=== PATIENT | female | born 1980 | race Caucasian/White ===

== ENCOUNTER 2020-12-19 16:34 | Emergency (ER) | payer OTHER, SELFPAY ==
[2020-12-19 16:45] VITALS: BP 98/65; PULSE 75; RESP 17; TEMP 37.2; O2SAT 100
--- NOTE | 2020-12-19 17:38 | ED.FEMALEGU ---
HPI - Female Genitourinary General Chief complaint: Abdominal Pain Stated complaint: diarrhea/abdominal pain Time Seen by Provider: 12/19/20 17:35 Source: patient Mode of arrival: ambulatory Limitations: no limitations History of Present Illness HPI Narrative: Nuris Herr is a 40 yo female with no PMH who [facility] of diarrhea and abdominal discomfort x1 week Related Data Allergies Allergy/AdvReac Type Severity Reaction Status Date / Time Sulfa (Sulfonamide Allergy Unknown Itching Verified 12/19/20 17:04 Antibiotics) SHELL FISH Allergy Intermediate FACE SWELLS Uncoded 12/19/20 17:04 Review of Systems Review of Systems: CONSTITUTIONAL: Denies fever, chills, sweats. EYES: Denies visual changes, redness, discharge. ENT: Denies rhinorrhea, congestion, sore throat, otalgia. CARDIOVASCULAR: Denies chest pain, palpitations, edema. RESPIRATORY: Denies dyspnea, wheezing, cough GASTROINTESTINAL: Denies abdominal pain, cramping, has nausea, vomiting, has diarrhea. GENITOURINARY: Denies dysuria, hematuria, abnormal discharge SKIN: Denies rash or itching. NEUROLOGIC: Denies numbness, or focal weakness. PSYCHIATRIC: Denies anxiety or depression. [facility] Past Medical History Medical History No acute medical problems Social History Social History (Updated 12/19/20 @ 17:42 by Anya Oliver CNP) Smoking status: Never smoker Alcohol intake: current Gender identity (if verbalized by the patient): Female Comments At time of signature, I agree with nursing past medical, surgical, social and family history. There is no relevant family history pertinent to the presenting complaint. Exam Narrative: GENERAL: This is a well-nourished, well-developed patient, in mild distress. HEAD: normocephalic, atraumatic. EYES: PERRL. Sclera clear/white. Vision is grossly intact. EARS: External ears normal, auditory canals clear and without drainage, TMs normal without perforation. Hearing grossly intact. NOSE: External nose normal without nasal discharge, nares without redness, no rhinorrhea. THROAT: Mucous membranes moist, posterior pharynx NECK: Neck supple, non-tender CARDIOVASCULAR: Regular rate and rhythm without murmurs, gallops, or rubs. RESPIRATORY: Clear to auscultation. Breath sounds equal bilaterally. No wheezes, rales, or rhonchi. GASTROINTESTINAL: Abdomen soft, non-tender, SKIN: warm, intact with no suspicious lesions or rash, good texture and turgor. NEURO: awake, alert, and oriented to person, place and time. There were no obvious focal neurologic abnormalities. Steady gait EXTREMITIES: Normal range of motion. BACK: Nontender without deformity Course Course Emergency Course: Patient comes with diarrhea for a week she states that she has the same situation last month and raises docks and thinks it may be she contracted something for the ducts but this time is have been unable to control the diarrhea Discussed brat diet and use of Zofran and Imodium to deal with diarrhea but cautioned that if the meds do not work, she starts running a fever, abdominal pain worsens, or diarrhea continues and she starts to get dehydrated patient should go to the ER for further evaluation Vital Signs Vital signs: Vital Signs Temperature 98.9 F 12/19/20 16:45 Pulse Rate 75 12/19/20 16:45 Respiratory Rate 17 12/19/20 16:45 Blood Pressure 98/65 L 12/19/20 16:45 Pulse Oximetry 100 12/19/20 16:45 Temperature 98.9 F 12/19/20 16:45 Pulse Rate 75 12/19/20 16:45 Respiratory Rate 17 12/19/20 16:45 Blood Pressure 98/65 L 12/19/20 16:45 Pulse Oximetry 100 12/19/20 16:45 MDM - Female Genitourinary Differential Diagnosis Differential diagnosis: Likely other (abdominal pain vs diarrhea) Lab Data Labs: Lab Results 12/19/20 Range/Units 16:53 POC SARS CoV-2 Ag Negative (Negative) Urine Glucose N
== END 2020-12-19 18:06 | disposition home or self-care (01) ==
PROVIDERS: Emergency Provider Nurse Practitioner
DX: K52.9 Noninfective gastroenteritis and colitis, unspecified (principal); Z20.822 Contact with and (suspected) exposure to COVID-19
CPT/HCPCS: 81003; 87426; 99213; C9803; G0463

== ENCOUNTER 2020-12-29 18:09 | Emergency (ER) | payer OTHER, SELFPAY ==
[2020-12-29 18:50] VITALS: BP 107/71; PULSE 62; RESP 16; TEMP 37.1; O2SAT 99
--- NOTE | 2020-12-29 19:29 | ED.FEMALEGU ---
HPI - Female Genitourinary General Chief complaint: Urogenital-Female Stated complaint: uti Time Seen by Provider: 12/29/20 19:29 Source: patient and RN notes reviewed Mode of arrival: ambulatory Limitations: no limitations History of Present Illness HPI Narrative: 40-year-old female who presents to [facility] with complaints of burning with urination, suprapubic pain,decrease urine amounts since yesterday. Patient states past history of urinary tract infections. Patient denies any known fevers, chills or sweats, denies any nausea vomiting or any diarrhea, denies any vaginal discharge or itching or concerns for STD's. Patient has not taken any OTC AZO for her symptoms. MD elicited complaint: dysuria and difficulty urinating Related Data Allergies Allergy/AdvReac Type Severity Reaction Status Date / Time Sulfa (Sulfonamide Allergy Unknown Itching Verified 12/19/20 17:04 Antibiotics) SHELL FISH Allergy Intermediate FACE SWELLS Uncoded 12/19/20 17:04 Review of Systems Review of Systems: CONSTITUTIONAL: Denies fever, chills, or sweats. EYES: Denies visual changes, redness, or discharge. ENT: Denies rhinorrhea, congestion, sore throat, or otalgia. CARDIOVASCULAR: Denies chest pain, palpitations, or edema. RESPIRATORY: Denies cough or dyspnea. GASTROINTESTINAL: Suprapubic tenderness abdominal pain,no nausea, vomiting, or diarrhea. GENITOURINARY:Positive for dysuria or hematuria. SKIN: Denies rash or itching. MUSCULOSKELETAL: Denies back pain, joint pain, or myalgia. NEUROLOGIC: Denies headache, numbness, or weakness. PSYCHIATRIC: Denies anxiety or depression. All systems reviewed & are unremarkable except as noted in HPI and below PMFSH Past Medical History Medical History (Updated 12/31/20 @ 09:54 by Millie Ferraro NP) Eczema Fracture of nose, closed Fracture of rib UTI (urinary tract infection) Surgical History Surgical History (Updated 12/31/20 @ 09:54 by Millie Ferraro NP) Previous section Family History Family History (Updated 12/31/20 @ 09:55 by Millie Ferraro NP) Sibling Diabetes mellitus Social History Social History (Updated 12/31/20 @ 09:56 by Millie Ferraro NP) Smoking status: Former smoker Additional smoking assessment comments: quit 10 years ago Alcohol intake: current Substance use: never Living arrangements: with family Gender identity (if verbalized by the patient): Female Comments At time of signature, agree with nursing past medical, surgical, social and family history. There is no relevant family history pertinent to the presenting complaint Exam Narrative: GENERAL: Well-appearing, well-nourished, and in no acute distress. HEAD: Normocephalic, atraumatic. EYES: PERRLA and EOMI. ENT: Nares clear, no rhinorrhea or epistaxis. Mucous membranes moist. NECK: Supple.no lymphadenopathy CHEST: Clear to auscultation. No respiratory distress.SAO2 99% on room air HEART: Regular rate and rhythm. No murmur heard. Normal peripheral pulses. ABDOMEN: Soft, tender over suprapubic area of abdomen, nondistended, normal active bowel sounds.No CVA tenderness on exam EXTREMITIES: Normal range of motion. No edema. SKIN: Warm, dry, no rash. NEURO: No focal deficits. Alert and oriented x3. Course Vital Signs Vital signs: Vital Signs Temperature 37.1 C 12/29/20 18:50 Pulse Rate 62 12/29/20 18:50 Respiratory Rate 16 12/29/20 18:50 Blood Pressure 107/71 12/29/20 18:50 Pulse Oximetry 99 12/29/20 18:50 Temperature 37.1 C 12/29/20 18:50 Pulse Rate 62 12/29/20 18:50 Respiratory Rate 16 12/29/20 18:50 Blood Pressure 107/71 12/29/20 18:50 Pulse Oximetry 99 12/29/20 18:50 MDM - Female Genitourinary Differential Diagnosis Differential diagnosis: Likely urinary tract infection, vaginitis and cystitis Medical Records Attestation: I reviewed the patient's medical records. Lab Data Attestation: I reviewed the patient's lab results. Lab
== END 2020-12-29 19:36 | disposition home or self-care (01) ==
PROVIDERS: Emergency Provider Registered Nurse
DX: N39.0 Urinary tract infection, site not specified (principal); Z87.891 Personal history of nicotine dependence
CPT/HCPCS: 81003; 87077; 87086; 87088; 87186; 99213; G0463

== ENCOUNTER 2021-01-28 02:59 | Emergency (ER) | payer OTHER, SELFPAY ==
[2021-01-28] VITALS (7 sets, daily range): BP systolic 94–109; BP diastolic 49–75; PULSE 75–91; RESP 15–16; TEMP 36.8; O2SAT 99–100
--- NOTE | ~2021-01-28 | CT_ITS ---
EXAMINATION: CT brain wo con DATE: 01/28/2021 03:44 INDICATION: Syncope. TECHNIQUE: Computed tomography (CT) of the head was performed without intravenous contrast. The mA wa s adjusted according to patient size. Iterative reconstruction technique was employed. The dose-lengt h product was 605.33 mGy-cm. COMPARISON: None FINDINGS: There is no intracranial hemorrhage, acute infarction, or abnormal intracranial mass lesion . The ventricles are normal in size. There is mild mucosal thickening in the ethmoid sinuses. The mas toid air cells are normal. The orbits are normal. IMPRESSION: 1. Normal brain. Reviewed, dictated and finalized at location A. IMPRESSION: 1. Normal brain.
--- NOTE | 2021-01-28 03:01 | ECG_ITS ---
Measurements Intervals [place] Rate: 74 P: 79 NM: 179 QRS: 54 QRSD: 78 T: 43 QT: 391 QTc: 436 Interpretive Statements SINUS RHYTHM WITH SINUS ARRHYTHMIA ST ELEVATION IN ANTEROLATERAL LEADS- PROBABLY EARLY REPOLARIZATION ABNORMALITY BASELINE ARTIFACT- I, II, III, AVR, AVL, AVF, V1, V5-V6 BORDERLINE ECG Electronically Signed On 01-28-2021 6:27:43 CDT by Dinesh Nichols D.O.
[2021-01-28 03:16] LABS: Basophils Absolute Auto 0.1 K/mm3 (0.0-0.1); Basophils Percent Auto 0.8 % (0.2-1.2); Eosinophils Absolute Auto 0.2 K/mm3 (0-0.3); Hematocrit 30.6 % (37.0-47.0); Hemoglobin 10.4 g/dL (12.0-15.0); Immature Granulocyte Absolute 0.02 K/mm3 (0.00-0.031); Immature Granulocyte Percent A 0.3 % (0-0.5); Lymphocytes Percent Auto 26.6 % (18.3-44.2); Mean Corpuscular Hemoglobin 29.5 pg (26-34); Mean Corpuscular Volume 86.9 fl (80-100); Monocytes Absolute Auto 0.5 K/mm3 (0.1-0.6); Neutrophils Absolute Auto 3.6 K/mm3 (1.3-6.7); Neutrophils Percent Auto 60.3 % (45.5-73.1); Platelet Count Result 186 k/mm3 (150-375); Red Blood Count 3.52 M/mm3 (4.2-5.4); Red Cell Distribution Width 13.3 % (11.5-14.5)
[2021-01-28 03:28] LABS: Anion Gap 11 mmol/L (8-16); Blood Urea Nitrogen 8 mg/dL (7-17); Calcium 9.1 mg/dL (8.4-10.2); Carbon Dioxide 23 mmol/L (22-30); Chloride 104 mmol/L (98-107); Estimated CRCL calculation 100 ml/min; Estimated Glomerular Filt Rate > 60; Glucose 90 mg/dL (65-110); Potassium 3.4 mmol/L (3.4-5.0); Sodium 138 mmol/L (137-145)
--- NOTE | 2021-01-28 03:30 | ED.SYNCOPE ---
HPI - Syncope General Chief Complaint: Syncope Stated Complaint: syncope Time Seen by Provider: 01/28/21 03:29 Source: patient Mode of arrival: ambulatory Limitations: no limitations History of Present Illness HPI narrative: Patient is a 40-year-old female complaining of a syncopal episode at home while playing videogames. Patient states that she felt dizzy and lightheaded prior to the syncopal episode. Patient denies any head injury. Patient denies any neck pain, chest pain, shortness of breath, abdominal pain, back pain, nausea, vomiting, fever or chills. Related Data Allergies Allergy/AdvReac Type Severity Reaction Status Date / Time Sulfa (Sulfonamide Allergy Unknown Itching Verified 01/28/21 03:09 Antibiotics) SHELL FISH Allergy Intermediate FACE SWELLS Uncoded 01/28/21 03:09 Review of Systems Review of Systems: All systems reviewed & are unremarkable except as noted in HPI and below Constitutional: Constitutional: Denies body ache(s), Denies chills, Denies excessive sweating, Denies fatigue, Denies fever(s), Denies headache(s), Denies lethargy, Denies malaise, Denies weakness and Denies weight loss Eyes: Eyes: Denies blurry vision, Denies change in vision and Denies loss of vision ENT: Denies dizziness, Denies ear discharge, Denies headache(s), Denies lip swelling, Denies epistaxis, Denies nasal congestion, Denies neck pain, Denies throat swelling and Denies tongue swelling Cardiovascular: Cardiovascular: Denies chest pain, Denies chest pain at rest, Denies chest pain with activity, Denies diaphoresis, Denies rapid heart rate, Denies edema, Denies irregular heart rhythm, Denies lightheadedness, Denies palpitations, Denies dyspnea and Denies dyspnea on exertion Respiratory: Respiratory: Denies chest congestion, Denies cough, Denies hemoptysis, Denies dyspnea and Denies dyspnea on exertion Gastrointestinal: Gastrointestinal: Denies abdominal pain, Denies melena, Denies hematochezia, Denies diarrhea, Denies nausea, Denies vomiting and Denies hematemesis Musculoskeletal: Musculoskeletal: Denies abnormal gait, Denies deformity, Denies joint swelling, Denies limited range of motion, Denies neck pain and Denies numbness Neurologic: Denies Abnormal speech present, Denies abnormal gait, Denies confusion, Denies headache(s), Denies focal weakness, Denies loss of vision, Denies numbness, Denies Other visual disturbances, Denies Sensory deficit (Neuro) and Denies weakness Psychiatric: Psychiatric: Denies confusion, Denies depression, Denies auditory hallucinations, Denies homicidal ideation and Denies suicidal ideation Endocrine: Endocrine: Denies cold intolerance, Denies excessive sweating, Denies fatigue, Denies heat intolerance and Denies palpitations Hematologic/Lymphatic: Hematologic/Lymphatic: Denies easy bleeding and Denies easy bruising Allergic/Immunologic: Allergic/Immunologic: Denies lip swelling, Denies throat swelling and Denies tongue swelling PMFSH Past Medical History Medical History Eczema Fracture of nose, closed Fracture of rib UTI (urinary tract infection) Surgical History Surgical History Previous section Family History Family History Sibling Diabetes mellitus Social History Social History Smoking status: Former smoker Additional smoking assessment comments: quit 10 years ago Alcohol intake: current Substance use: never Gender identity (if verbalized by the patient): Female Exam Const: General: cooperative, healthy appearing, comfortable, no acute distress, well developed, alert and awake; No confusion Orientation/consciousness: oriented to person, oriented to place, oriented to time, patient oriented x3 and No confusion Limitations: no limitations [facility]
[2021-01-28] MEDS: SODIUM CHLORIDE 0.9% IV 1,000 ML 999 ML IV CONT (03:42)
[2021-01-28 04:00] LABS: Partial Thromboplastin Time 24.6 SECONDS (22.3-36.8); Prothrombin Time 13.2 Seconds (11.1-14.7)
[2021-01-28 04:03] LABS: D Dimer 0.31 ug/mL (<0.48)
[2021-01-28 04:04] LABS: Troponin I < 0.012 ng/mL (0.000-0.034)
== END 2021-01-28 05:36 | disposition home or self-care (01) ==
PROVIDERS: Emergency Provider Emergency Medicine
DX: R55 Syncope and collapse (principal); Z87.440 Personal history of urinary (tract) infections; Z87.891 Personal history of nicotine dependence; R94.31 Abnormal electrocardiogram [ECG] [EKG]
CPT/HCPCS: 36415; 70450; 80048; 81025; 84484; 85025; 85380; 85610; 85730; 93005; 96360; 99284; J7030

== ENCOUNTER 2021-12-11 19:10 | Emergency (ER) | payer OTHER, SELFPAY ==
--- NOTE | ~2021-12-11 | XR_ITS ---
EXAM: XR foot RT min 3V DATE: 12/11/2021 19:27 HISTORY: pain to rt foot, area 2nd thur 5 metatarsals, . COMPARISON: None available. FINDINGS: Normal mineralization. No fracture or dislocation. No lytic or blastic lesion. Joint space s are maintained. No erosion or periosteal change. Soft tissues within normal limits. IMPRESSION: No acute osseous finding in the right foot. Reviewed, dictated and finalized at location K.
[2021-12-11 19:18] VITALS: BP 111/70; PULSE 67; RESP 16; TEMP 36.8; O2SAT 100
[2021-12-11 19:19] VITALS: BP 111/70; PULSE 67; RESP 16; TEMP 36.8; O2SAT 100
--- NOTE | 2021-12-11 19:49 | ED.GENADULT ---
HPI - General Adult General Chief complaint: Extremity Injury, Lower Stated complaint: Right foot Pain Time Seen by Provider: 12/11/21 19:42 Source: patient Mode of arrival: ambulatory Limitations: no limitations History of Present Illness HPI narrative: Patient presents today complaining of a 2-day history of right foot pain that has been worsening since onset. Denies numbness or tingling. She rates her pain 2/10 at rest, which increases to 8/10 with any weightbearing. She has been taking ibuprofen with some relief. Patient is a runner, but is unsure if this is contributing to her pain. Related Data Allergies Allergy/AdvReac Type Severity Reaction Status Date / Time Sulfa (Sulfonamide Allergy Unknown Itching Verified 12/11/21 19:19 Antibiotics) SHELL FISH Allergy Intermediate FACE SWELLS Uncoded 12/11/21 19:19 Review of Systems Review of Systems: CONSTITUTIONAL: Denies body aches, fever, chills, or sweats. EYES: Denies visual changes, redness, or discharge. ENT: Denies rhinorrhea, congestion, sore throat, or otalgia. CARDIOVASCULAR: Denies chest pain, palpitations, or edema. RESPIRATORY: Denies cough or dyspnea. GASTROINTESTINAL: Denies abdominal pain, nausea, vomiting, or diarrhea. GENITOURINARY: Denies dysuria or hematuria. SKIN: Denies rash, itching, or wounds. MUSCULOSKELETAL: Denies back pain, or myalgia.+Right foot pain NEUROLOGIC: Denies headache, numbness, tingling, or weakness. PSYCH: Denies depression or anxiety. [facility] Past Medical History Medical History Eczema Fracture of nose, closed Fracture of rib UTI (urinary tract infection) Surgical History Surgical History Previous section Family History Family History Sibling Diabetes mellitus Social History Social History Smoking status: Former smoker Additional smoking assessment comments: quit 10 years ago Alcohol intake: current Substance use: never Gender identity (if verbalized by the patient): Female Comments At time of signature, I have reviewed and agree with nursing past medical, surgical, social and family history unless otherwise noted. Please see nursing chart for further information. There is no relevant family history pertinent to the presenting complaint Exam Narrative: GENERAL: Well-appearing, well-nourished, and in no acute distress. HEAD: Normocephalic, atraumatic. EYES: EOMI. No redness or drainage. Conjunctivae normal. ENT: Mucous membranes pink and moist. NECK: Normal AROM. CHEST: No respiratory distress. EXTREMITIES: Right foot:Tenderness to proximal third and fourth metatarsals, Dorsal aspect. No edema, erythema, ecchymosis. Distal sensation intact in all 5 toes. Capillary refill normal. Pedal pulse normal. Full range of motion of ankle and all toes. SKIN: Warm, dry, no rash. Capillary refill normal. Normal skin turgor. NEURO: No focal deficits. Alert and oriented x3. Gait steady. PSYCH: Normal affect. No signs of depression or anxiety. Course Course Level of Care: Express Care Visit Vital Signs Vital signs: Vital Signs Temperature 98.3 F 12/11/21 19:18 Pulse Rate 67 12/11/21 19:18 Respiratory Rate 16 12/11/21 19:18 Blood Pressure 111/70 12/11/21 19:18 Pulse Oximetry 100 12/11/21 19:18 Oxygen Delivery Room Air 12/11/21 19:18 Temperature 98.3 F 12/11/21 19:19 Pulse Rate 67 12/11/21 19:19 Respiratory Rate 16 12/11/21 19:19 Blood Pressure 111/70 12/11/21 19:19 Pulse Oximetry 100 12/11/21 19:19 Oxygen Delivery Room Air 12/11/21 19:19 Reviewed Medical Decision Making Differential Diagnosis Differential Diagnosis: Fracture, sprain, Davis's neuroma, tarsal tunnel syndrome Vital Signs Vital Si
== END 2021-12-11 19:54 | disposition home or self-care (01) ==
PROVIDERS: Emergency Provider Nurse Practitioner
DX: M79.671 Pain in right foot (principal); Z87.891 Personal history of nicotine dependence
CPT/HCPCS: 73630; 99213; G0463

== ENCOUNTER 2021-12-24 17:56 | Emergency (ER) | payer OTHER, SELFPAY ==
--- NOTE | ~2021-12-24 | CT_ITS ---
EXAMINATION: CT brain wo con DATE: 12/24/2021 19:23 INDICATION: Head injury. TECHNIQUE: Computed tomography (CT) of the head was performed without intravenous contrast. The mA wa s adjusted according to patient size. Iterative reconstruction technique was employed. The dose-lengt h product was 605.33 mGy-cm. COMPARISON: Head CT 01/28/2021 FINDINGS: There is no intracranial hemorrhage, acute infarction, or abnormal intracranial mass lesion . The ventricles are normal in size. There is mild mucosal thickening in the paranasal sinuses. The m astoid air cells are normal. The orbits are normal. IMPRESSION: 1. Normal brain. Reviewed, dictated and finalized at location A. IMPRESSION: 1. Normal brain.
--- NOTE | ~2021-12-24 | XR_ITS ---
EXAMINATION: XR foot RT min 3V DATE: 12/24/2021 19:04 INDICATION: Right foot pain. TECHNIQUE: 4 views of right foot were obtained. COMPARISON: Right foot radiograph 12/11/2021 FINDINGS: Bone alignment is normal. No fracture. Joint spaces are well maintained. IMPRESSION: 1. Normal right foot. Reviewed, dictated and finalized at location A. IMPRESSION: 1. Normal right foot.
[2021-12-24 18:03] VITALS: BP 120/80; PULSE 73; RESP 16; TEMP 37; O2SAT 100
--- NOTE | 2021-12-24 19:15 | ED.GENADULT ---
HPI - General Adult General Chief complaint: Extremity Injury, Lower Stated complaint: right foot and head injury Time Seen by Provider: 12/24/21 19:03 Source: RN notes reviewed History of Present Illness HPI narrative: Patient presents emergency room from home for foot and head pain patient states that she has been having pain in her right foot for the past 2 weeks pain is located over the dorsal aspect of the foot at the base of the second and third digits she denies any known trauma or injury states that she does run frequently pain is worse with running and walking. She denies any direct trauma or injury states has not anything for the pain today patient also notes that headache that she has in the right posterior head she states she fell yesterday and hit her head when she fell on a dresser states she did not have loss conscious but continues to have a headache she denies any vision changes numbness or tingling in extremities neck pain or any other injuries from the fall Related Data Allergies Allergy/AdvReac Type Severity Reaction Status Date / Time Sulfa (Sulfonamide Allergy Unknown Itching Verified 12/11/21 19:19 Antibiotics) SHELL FISH Allergy Intermediate FACE SWELLS Uncoded 12/11/21 19:19 Review of Systems Review of Systems: Gen.: Denies fevers or chills Eyes: Denies eye pain or visual change ENT: Denies congestion Respiratory: Denies shortness of breath or cough CV: Denies chest pain or palpitations GI: Denies abdominal pain nausea, emesis or diarrhea Musculoskeletal: See HPI Neuro: Reports headache Skin: Denies rash Except as documented, all other systems reviewed and negative PMFSH Past Medical History Medical History Eczema Fracture of nose, closed Fracture of rib UTI (urinary tract infection) Surgical History Surgical History Previous section Family History Family History Sibling Diabetes mellitus Social History Social History Smoking status: Former smoker Additional smoking assessment comments: quit 10 years ago Alcohol intake: current Substance use: never Gender identity (if verbalized by the patient): Female Exam Narrative: APPEARANCE: No acute distress, nontoxic, resting in bed EYES: EOMI, PERRL HEENT: Normocephalic, atraumatic, TMs clear bilaterally nares patent no facial tenderness Neck supple no midline tenderness palpation for range of motion without pain RESPIRATORY: No respiratory distress Clear to auscultation bilaterally with no rhonchi wheezing or rales. CARDIOVASCULAR: Regular rate and rhythm without murmurs rubs or gallops. ABDOMINAL: Soft, nontender, MUSCULOSKELETAl: Moves all extremities. No clubbing, cyanosis or edema. Tender palpation of the right dorsal foot at the base of the second and third digits there is no swelling or ecchymosis there is no tenderness over the plantar aspect remainder the foot and ankle are nontender dorsalis pedis pulse 2+ neurovascular intact NEURO: Awake and alert. Following commands, speech normal, no focal deficits SKIN:: Warm, dry. No rashes lesions or abrasions PSYCHIATRIC: Normal affect/mood, Course Course Emergency Course: Discussed with patient results of workup and diagnosis. Discussed need for follow-up with primary care, proper use of medication, and reasons to return to the emergency department. Patient understands and agrees to current treatment plan discussed with patient need to refrain from running for the next week is concerned possible stress fracture versus other for follow-up with her PCP will place postop shoe Vital Signs Vital signs: Vital Signs Temperature 98.6 F 12/24/21 18:03 Pulse Rate 73 12/24/21 18:03 Respiratory Rate 16 12/24/21 18:03 Blood Pressure 120/80 0
[2021-12-24] MEDS: IBUPROFEN 600 MG TABLET PO (19:58)
== END 2021-12-24 20:31 | disposition home or self-care (01) ==
PROVIDERS: Emergency Provider Emergency Medicine
DX: S00.93XA Contusion of unspecified part of head, initial encounter (principal); M79.671 Pain in right foot; W01.190A Fall on same level from slipping, tripping and stumbling with subsequent striking against furniture, initial encounter
CPT/HCPCS: 70450; 73630; 99284; A9270

== ENCOUNTER 2022-02-08 17:12 | Outpatient (CLI) | payer OTHER, SELFPAY ==
[2022-02-08 17:36] LABS: Hematocrit 34.7 % (37.0-47.0); Hemoglobin 11.8 g/dL (12.0-15.0); Mean Corpuscular Hemoglobin 29.7 pg (26-34); Mean Corpuscular Volume 87.4 fl (80-100); Mean Platelet Volume 9.5 fl (7.4-10.4); Platelet Count Result 222 k/mm3 (150-375); Red Blood Count 3.97 M/mm3 (4.2-5.4); Red Cell Distribution Width 13.2 % (11.5-14.5); White Blood Count 5.6 K/mm3 (4.5-10.0)
[2022-02-08 17:49] LABS: Alanine Aminotransferase 27 U/L (6-35); Albumin Level 4.7 g/dL (3.5-5.1); Alkaline Phosphatase 40 U/L (38-126); Anion Gap 11 mmol/L (8-16); Aspartate Amino Transferase 35 U/L (14-36); Bilirubin,Total 0.9 mg/dL (0.2-1.3); Blood Urea Nitrogen 10 mg/dL (7-17); Calcium 8.9 mg/dL (8.4-10.2); Carbon Dioxide 22 mmol/L (22-30); Chloride 106 mmol/L (98-107); Cholesterol 160 mg/dL (0-200); Estimated Glomerular Filt Rate > 60; Glucose 94 mg/dL (65-110); HDL Direct 73 mg/dL; Potassium 3.8 mmol/L (3.4-5.0); Sodium 139 mmol/L (137-145); Triglycerides 51 mg/dL (<150)
[2022-02-08 18:00] LABS: LDL Cholesterol Direct 69 mg/dL
[2022-02-08 18:25] LABS: Hemoglobin A1C 4.4 % (<5.7)
[2022-02-08 18:44] LABS: Free T4 Free Thyroxine 0.96 ng/mL (0.78-2.19)
[2022-02-11 07:08] LABS: FSH 7.2 mIU/mL (***); LH 3.4 mIU/mL (***)
[2022-02-14 04:23] LABS: Estradiol, Ultrasensitive 55 pg/mL
== END 2022-02-08 17:13 | disposition home or self-care (01) ==
LOC: ANHLAB 17:15
PROVIDERS: Visit Provider Nurse Practitioner
DX: N92.6 Irregular menstruation, unspecified (principal)
CPT/HCPCS: 36415; 80053; 80061; 82306; 82607; 82670; 83001; 83002; 83036; 84439; 84443; 85027

== ENCOUNTER 2022-05-11 16:11 | Emergency (ER) | payer OTHER, SELFPAY ==
--- NOTE | 2022-05-11 16:22 | ED.FEMALEGU ---
HPI - Female Genitourinary General Chief complaint: Urogenital-Female Stated complaint: UTI Time Seen by Provider: 05/11/22 16:22 Source: patient Mode of arrival: ambulatory Limitations: no limitations History of Present Illness HPI Narrative: Nuris is a 41-year-old female patient presenting to the clinic today with complaints of possible urinary tract infection. She reports she is having some burning, frequency, and urgency x1 week. She has taken a 5 day course of Macrobid and this improved her symptoms while taking it however her symptoms have returned 2 days ago. She denies any fever or chills. She denies any back pain or lower abdominal pain Related Data Allergies Allergy/AdvReac Type Severity Reaction Status Date / Time Sulfa (Sulfonamide Allergy Unknown Itching Verified 05/11/22 16:18 Antibiotics) SHELL FISH Allergy Intermediate FACE SWELLS Uncoded 05/11/22 16:18 Review of Systems Review of Systems: Pertinent positives per HPI. Patient denies any fever, chills, rash, headache, visual changes, dizziness, cough, runny nose, sore throat, shortness of breath, chest pain, palpitations, nausea, vomiting, diarrhea, constipation, or any abdominal pain. PMFSH Past Medical History Medical History Eczema Fracture of nose, closed Fracture of rib UTI (urinary tract infection) Surgical History Surgical History Previous section Family History Family History Sibling Diabetes mellitus Social History Social History Smoking status: Former smoker Additional smoking assessment comments: quit 10 years ago Alcohol intake: current Substance use: never Gender identity (if verbalized by the patient): Female Comments At the time of my signature, I reviewed and agree with the nursing past medical, surgical, social, and family history. There is no relevant family history pertinent to the patient complaint. Exam Narrative: General: Well-developed, well nourished, in no apparent distress. Head: Normocephalic, atraumatic. Cardio: Regular rate and rhythm, s1 and s2 normal, no murmur appreciated. Resp: Clear to auscultation bilaterally, no rhonchi, rales, wheezing or rubs. Abdomen: Soft, pliable, bowel sounds present in all quadrants, non-tender to palpation, no organomegly, no CVAT tenderness. Course Course Emergency Course: Portions of this record may have been created with voice recognition software. Level of Care: Express Care Visit Vital Signs Vital signs: Vital Signs Temperature 37.2 C 05/11/22 16:26 Pulse Rate 64 05/11/22 16:26 Respiratory Rate 18 05/11/22 16:26 Blood Pressure 111/76 05/11/22 16:26 Pulse Oximetry 100 05/11/22 16:26 Oxygen Delivery Room Air 05/11/22 16:26 Temperature 37.2 C 05/11/22 16:26 Pulse Rate 64 05/11/22 16:26 Respiratory Rate 18 05/11/22 16:26 Blood Pressure 111/76 05/11/22 16:26 Pulse Oximetry 100 05/11/22 16:26 Oxygen Delivery Room Air 05/11/22 16:26 Vital signs reviewed MDM - Female Genitourinary MDM Narrative Medical decision making narrative: At the time the patient is resting comfortably on the exam table. Urinalysis is negative for any sign of bacteria, blood, or protein. I will place the patient on a prescription for some Pyridium to help with her symptoms. Supportive measures were discussed with the patient she voiced understanding of discharge instructions and agrees to treatment plan. Differential Diagnosis Differential diagnosis: Likely urinary tract infection, cystitis and other ( Dysuria) Lab Data Labs: Urine Glucose Negative Reference Range: Negative Urine Bilirubin Neg
[2022-05-11 16:26] VITALS: BP 111/76; PULSE 64; RESP 18; TEMP 37.2; O2SAT 100
== END 2022-05-11 17:02 | disposition home or self-care (01) ==
PROVIDERS: Emergency Provider Nurse Practitioner Family
DX: R30.0 Dysuria (principal); Z87.891 Personal history of nicotine dependence
CPT/HCPCS: 81003; 99213; G0463

== ENCOUNTER 2023-06-04 15:51 | Emergency (ER) | payer OTHER, SELFPAY ==
[2023-06-04 16:01] VITALS: BP 116/74; PULSE 83; RESP 20; TEMP 37.4; O2SAT 100
--- NOTE | 2023-06-04 16:13 | PC.NURSE ---
PT CALLED X3 FOR ROOM, LWBS
== END 2023-06-04 20:59 | disposition left against medical advice (07) ==
DX: R20.0 Anesthesia of skin (principal)
CPT/HCPCS: 99199

== ENCOUNTER 2023-06-05 14:59 | Emergency (ER) | payer OTHER, SELFPAY ==
[2023-06-05 15:06] VITALS: BP 125/78; PULSE 87; RESP 18; TEMP 37.3; O2SAT 100
--- NOTE | 2023-06-05 15:26 | ED.EXTPRO ---
HPI - Extremity Problem General Chief complaint: Extremity Problem,Nontraumatic Stated complaint: Left leg tingling Time Seen by Provider: 06/05/23 15:09 Source: patient and RN notes reviewed Mode of arrival: ambulatory Limitations: no limitations History of Present Illness HPI Narrative: Patient presents today with a 3 day history of left leg tingling. Reports 3 days ago she woke up with a kink in her mid back and numbness to the left lower leg and foot. The following day, she noted tingling to the upper leg area. Denies pain. She continues to run every morning for exercise. Denies weakness, loss of bowel or bladder control, headache, dizziness, chest pain, shortness of breath, vision changes, palpitations. She has tried no medication for symptoms prior to arrival. Yesterday she went to the ER for evaluation, but had to leave after several hours, before she was seen, due to childcare issues. Related Data Home Medications Medication Instructions Recorded Confirmed No Home Medications 06/05/23 06/05/23 Allergies Allergy/AdvReac Type Severity Reaction Status Date / Time nitrofurantoin Allergy Intermediate Itching Verified 05/11/22 17:18 [From Macrobid] Sulfa (Sulfonamide Allergy Unknown Itching Verified 05/11/22 16:18 Antibiotics) SHELL FISH Allergy Intermediate FACE SWELLS Uncoded 05/11/22 16:18 Review of Systems Review of Systems: CONSTITUTIONAL: Denies body aches, fever, chills, or sweats. EYES: Denies visual changes, redness, or discharge. ENT: Denies rhinorrhea, congestion, sore throat, or otalgia. CARDIOVASCULAR: Denies chest pain, palpitations, or edema. RESPIRATORY: Denies cough or dyspnea. GASTROINTESTINAL: Denies abdominal pain, nausea, vomiting, or diarrhea. GENITOURINARY: Denies dysuria or hematuria. SKIN: Denies rash, itching, or wounds. MUSCULOSKELETAL: Denies back pain, joint pain, or myalgia. NEUROLOGIC: Denies headache, or weakness.+ numbness and tingling to left leg PSYCH: Denies depression or anxiety. [facility] Past Medical History Medical History Eczema Fracture of nose, closed Fracture of rib UTI (urinary tract infection) Surgical History Surgical History Previous section Family History Family History Sibling Diabetes mellitus Social History Social History Smoking status: Former smoker Additional smoking assessment comments: quit 10 years ago Alcohol intake: current Substance use: never Living arrangements: with family Gender identity (if verbalized by the patient): Female Comments At time of signature, I have reviewed and agree with nursing past medical, surgical, social and family history unless otherwise noted. Please see nursing chart for further information. There is no relevant family history pertinent to the presenting complaint Exam Narrative: GENERAL: Well-appearing, well-nourished, and in no acute distress. HEAD: Normocephalic, atraumatic. EYES: EOMI. No redness or drainage. Conjunctivae normal. ENT: Mucous membranes pink and moist. NECK: Normal AROM. CHEST: No respiratory distress. MUSCULOSKELETAL: No bony tenderness of the spine or lumbar paraspinal muscles. EXTREMITIES: Left leg: distal sensation intact in all 5 toes, but patient reports decreased sensation in the toes and foot. Sensation intact in the remainder of the leg. Saddle sensation intact. Capillary refill normal. Pedal pulse normal. Color of the foot and leg is normal. Strength normal. SKIN: Warm, dry, no rash. Capillary refill normal. Normal skin turgor. NEURO: No focal deficits. Alert and oriented x3. Gait steady. PSYCH: Normal affect. No signs of depression or anxiety. Course Course Level of Care: Expr
== END 2023-06-05 15:32 | disposition home or self-care (01) ==
PROVIDERS: Emergency Provider Nurse Practitioner
DX: R20.0 Anesthesia of skin (principal); R20.2 Paresthesia of skin; Z87.891 Personal history of nicotine dependence
CPT/HCPCS: 99211; G0463

== ENCOUNTER 2023-06-13 20:19 | Emergency (ER) | payer OTHER, SELFPAY ==
--- NOTE | ~2023-06-13 | CT_ITS ---
Noncontrast CT scan of the lumbar spine CLINICAL HISTORY: Lower extremity numbness TECHNIQUE: Axial noncontrast imaging of the lumbar spine was performed. Sagittal and coronal reformat belgica images were constructed. Dose reduction technique was used on this scan by utilizing automated ex posure control and iterative reconstruction technique. The dose-length product (DLP) was 416.86 mGy-c m. FINDINGS: There is no fracture or subluxation of the lumbar spine. Vertebral bodies maintain normal h eight and alignment. Intervertebral disc spaces are relatively well-preserved. At L1-L2, there is no disc bulge or herniation. No spinal canal stenosis or neural foraminal narrowin g. At L2-L3, there is no disc bulge or herniation. No spinal canal stenosis or neural foraminal narrowin g. L3-L4, there is no significant disc bulge or herniation. No spinal canal stenosis or neural foraminal narrowing. At L4-L5, there is minimal disc bulge. No spinal canal stenosis or definite neural foraminal narrowin g. At L5-S1, there is no disc bulge or herniation. No spinal canal stenosis or neural foraminal narrowin g. Paravertebral soft tissues are unremarkable. Impression: Minimal degenerative spondylosis. Reviewed, dictated and finalized at location . [facility] Impression: Minimal degenerative spondylosis.
--- NOTE | ~2023-06-13 | CT_ITS ---
Noncontrast CT scan of the thoracic spine CLINICAL HISTORY: Lower extremity numbness TECHNIQUE: Axial noncontrast imaging of the thoracic spine was performed. Sagittal and coronal reform atted images were constructed. Dose reduction technique was used on this scan by utilizing automated exposure control and iterative reconstruction technique. The dose-length product (DLP) was 244.96 mGy -cm. FINDINGS: There is no fracture or subluxation of the thoracic spine. Vertebral bodies maintain normal height and line. Intervertebral disc spaces are preserved. No significant disc bulge or herniation. No definite canal stenosis or cord compression identified. Paravertebral soft tissues are unremarkable. Impression: No significant abnormality seen. Reviewed, dictated and finalized at location . TESTER Impression: No significant abnormality seen.
--- NOTE | ~2023-06-13 | XR_ITS ---
Portable chest x-ray Comparison: 04/04/2016 Clinical History: Numbness Findings: Lungs are clear, without focal consolidation or pleural effusion. Cardiomediastinal silho uette is stable. Bones and soft tissues are unremarkable. Impression: Normal chest. Reviewed, dictated and finalized at location . [facility] SUPERIOR Impression: Normal chest.
--- NOTE | ~2023-06-13 | CT_ITS ---
CT ANGIOGRAM NECK AND HEAD History: Lower extremity numbness. Technique: Axial noncontrast imaging of the brain was performed. Serial spiral axial images through t he head and neck were then obtained during arterial phase IV injection of 100 cc of Omnipaque 350. 3- D postprocessing and MIP images were then reconstructed on the remote workstation. Dose reduction muriel hnique was used on this scan by utilizing automated exposure control and iterative reconstruction muriel hnique. The dose-length product (DLP) was 1779.12 mGy-cm. COMPARISON: 12/24/2021 CTA neck findings: Bilateral vertebral arteries are patent. Bilateral common carotid, internal carot id, and external carotid arteries are patent. No stenosis or aneurysm. No large vessel occlusion. The proximal right internal carotid artery demonstrates 0% stenosis relative to the normal distal artery lumen diameter. The proximal left internal carotid artery demonstrates 0% stenosis relative to the n ormal distal artery lumen diameter. CTA head findings: Distal vertebral arteries, basilar artery, and posterior cerebral arteries are pat ent. Distal internal carotid arteries, middle cerebral arteries, and anterior cerebral arteries are p atent. No large vessel occlusion. No stenosis or aneurysm. Axial noncontrast imaging of the brain is unremarkable. No acute intracranial hemorrhage, acute infar ct, or mass lesion seen. Salcedo-white differentiation preserved. Ventricles and subarachnoid spaces are unremarkable. No mass effect or midline shift. Nasal sinuses and mastoid air cells are clear. Impression: Unremarkable exam. Reviewed, dictated and finalized at [facility]. TH UNIT CLERK Impression: Unremarkable exam.
[2023-06-13 20:40] VITALS: BP 130/83; PULSE 74; RESP 17; TEMP 36.9; O2SAT 100
[2023-06-13 23:22] VITALS: BP 111/98; PULSE 83; RESP 12; O2SAT 100
--- NOTE | 2023-06-14 00:02 | ECG_ITS ---
Measurements Intervals [place] Rate: 65 P: 71 MI: 182 QRS: 56 QRSD: 82 T: 51 QT: 376 QTc: 393 Interpretive Statements SINUS RHYTHM WITH SINUS ARRHYTHMIA COMPARED TO ECG 01/28/2021 03:08:57 NO SIGNIFICANT CHANGES Electronically Signed On 06-14-2023 15:13:19 [employer] DISM[employer]ER by Jim Flower M.D.
--- NOTE | 2023-06-14 00:04 | ED.EXTPRO ---
HPI - Extremity Problem General Chief complaint: Extremity Problem,Nontraumatic <Leonila Estes PA-C - Last Filed: 06/14/23 02:51> Stated complaint: left lower body and leg numbness <Leonila Estes PA-C - Last Filed: 06/14/23 02:51> Time Seen by Provider: 06/13/23 23:44 <DARRELL Kulkarni Last Filed: 06/14/23 02:51> History of Present Illness HPI Narrative: 42-year-old female presents to the emergency department for lower extremity paresthesias and numbness. Patient states approximately 9 days ago, she began developing numbness and paresthesias in her from her left knee to her feet. Reports over time, the numbness has progressed up into her left hip and is now involving her left buttock, pelvis and saddle area. States she is also having paresthesias in her right foot. She was evaluated by urgent and had labs drawn which were unremarkable. She was started on steroids without improvement. States she contacted her PCP advised her to come to the ER for further evaluation. She denies lower extremity weakness, chest pain or shortness of breath, headache, vision changes, fever, cough or congestion. Denies bowel or bladder incontinence, bladder retention. She does state that prior to symptom onset, she had her daughter lesion or dog pulled her, causing her to fall to the ground. Patient states she landed on her right knee. She denied head or headers is consciousness, she denies back injury. Last known well 9 days ago. <DARRELL Kulkarni Last Filed: 06/14/23 02:51> Related Data Home medications: Home Medications Medication Instructions Recorded Confirmed No Home Medications 06/05/23 06/05/23 <DARRELL Kulkarni Last Filed: 06/14/23 02:51> Allergies/Adverse reactions: Allergies Allergy/AdvReac Type Severity Reaction Status Date / Time nitrofurantoin Allergy Intermediate Itching Verified 06/13/23 23:23 [From Macrobid] Sulfa (Sulfonamide Allergy Unknown Itching Verified 06/13/23 23:23 Antibiotics) SHELL FISH Allergy Intermediate FACE SWELLS Uncoded 06/13/23 23:23 <Leonila Estes PA-C - Last Filed: 06/14/23 02:51> Review of Systems Review of Systems: CONSTITUTIONAL: Denies fever, chills, or sweats. EYES: Denies visual changes, redness, or discharge. ENT: Denies rhinorrhea, congestion, sore throat, or otalgia. CARDIOVASCULAR: Denies chest pain, palpitations, or edema. RESPIRATORY: Denies cough or dyspnea. GASTROINTESTINAL: Denies abdominal pain, nausea, vomiting, or diarrhea. GENITOURINARY: Denies dysuria or hematuria. SKIN: Denies rash or itching. MUSCULOSKELETAL: See HPI NEUROLOGIC: Denies headache, numbness, or weakness. PSYCHIATRIC: Denies anxiety or depression. <Leonila Estes PA-C - Last Filed: 06/14/23 02:51> PMFSH Past Medical History Medical History: Medical History Eczema Fracture of nose, closed Fracture of rib UTI (urinary tract infection) <Leonila Estes PA-C - Last Filed: 06/14/23 02:51> Surgical History Surgical History: Surgical History Previous section <Leonila Estes PA-C - Last Filed: 06/14/23 02:51> Family History Family History: Family History Sibling Diabetes mellitus <Leonila Estes PA-C - Last Filed: 06/14/23 02:51> Social History Social History: Social History Smoking status: Former smoker Additional smoking assessment comments: quit 10 years ago Alcohol intake: current Substance use: never Living arrangements: with family Gender identity (if verbalized by the patient): Female <Leonila Estes PA-C - Last Filed: 06/14/23 02:51> Exam Narrative: GENERAL: Well-appearing, well-nourished, and in no acute distre
[2023-06-14 00:45] LABS: Estimated CRCL calculation 116 ml/min; Estimated Glomerular Filt Rate > 60
[2023-06-14 01:22] VITALS: BP 103/80; PULSE 72; RESP 15; O2SAT 100
[2023-06-14 01:40] LABS: Basophils Absolute Auto 0.1 K/mm3 (0.0-0.1); Basophils Percent Auto 0.8 % (0.2-1.2); Eosinophils Absolute Auto 0.3 K/mm3 (0-0.3); Eosinophils Percent Auto 3.5 % (0-4.4); Hematocrit 32.8 % (37.0-47.0); Hemoglobin 10.9 g/dL (12.0-15.0); Immature Granulocyte Absolute 0.02 K/mm3 (0.00-0.031); Immature Granulocyte Percent A 0.3 % (0-0.5); Lymphocytes Absolute Auto 3.13 K/mm3 (0.9-3.2); Lymphocytes Percent Auto 43.8 % (18.3-44.2); Mean Corpuscular HGB Conc 33.2 g/dl (32-36); Mean Corpuscular Hemoglobin 29.5 pg (26-34); Mean Corpuscular Volume 88.9 fl (80-100); Mean Platelet Volume 9.7 fl (7.4-10.4); Monocytes Absolute Auto 0.4 K/mm3 (0.1-0.6); Monocytes Percent Auto 5.7 % (2.6-8.5); Neutrophils Absolute Auto 3.3 K/mm3 (1.3-6.7); Neutrophils Percent Auto 45.9 % (45.5-73.1); Platelet Count Result 250 k/mm3 (150-375); Red Blood Count 3.69 M/mm3 (4.2-5.4); Red Cell Distribution Width 12.9 % (11.5-14.5); White Blood Count 7.1 K/mm3 (4.5-10.0)
[2023-06-14 01:49] LABS: Appearance Urine Clear (Clear); Bacteria Urine None Seen /hpf; Bilirubin Urine Negative (Negative); Blood Urine 2+ (Negative); Color Urine Yellow (Yellow); Glucose Urine UA Negative (Negative); Ketones Urine Negative (Negative); Leukocyte Esterase Ur Negative LEU/UL (Negative); Nitrate Urine Negative (Negative); Non Pathogenic Casts 0-2; Protein Urine Negative (Negative); RBC Urine 0-2 /hpf (0-2); Squamous Epithelial Cell Urine None seen /hpf (Few); Urobilinogen Urine 0.2 mg/dL (<2.0); WBC Urine 0-5 /hpf; pH Urine 6.5 (5.0-9.0)
[2023-06-14 01:52] LABS: Partial Thromboplastin Time 25.6 SECONDS (22.3-36.8); Prothrombin Time 13.8 Seconds (11.1-14.7)
[2023-06-14 02:00] LABS: Add Urine Microscopic? YES; Specific Grav Ur 1.041 (1.001-1.035)
[2023-06-14 02:21] LABS: Alanine Aminotransferase 19 U/L (6-35); Alkaline Phosphatase 45 U/L (38-126); Anion Gap 5 mmol/L (8-16); Aspartate Amino Transferase 20 U/L (14-36); Bilirubin,Total 0.3 mg/dL (0.2-1.3); Blood Urea Nitrogen 9 mg/dL (7-17); Calcium 8.9 mg/dL (8.4-10.2); Carbon Dioxide 29 mmol/L (22-30); Chloride 103 mmol/L (98-107); Estimated CRCL calculation 116 ml/min; Estimated Glomerular Filt Rate > 60; Glucose 100 mg/dL (65-110); Potassium 3.7 mmol/L (3.4-5.0); Sodium 137 mmol/L (137-145)
[2023-06-14 02:31] LABS: Troponin I < 0.012 ng/mL (0.000-0.034)
[2023-06-14] MEDS: SODIUM CHLORIDE 0.9% IV 1,000 ML 999 ML IV CONT (02:37)
== END 2023-06-14 03:45 | disposition left against medical advice (07) ==
PROVIDERS: Physician Assistant; Emergency Provider Emergency Medicine
DX: R20.0 Anesthesia of skin (principal); Z87.440 Personal history of urinary (tract) infections
CPT/HCPCS: 70496; 70498; 71045; 72128; 72131; 80053; 81001; 81025; 84484; 85025; 85610; 85730; 93005; 96360; 99284; J7030; Q9967

== ENCOUNTER 2023-06-14 14:12 | Observation (INO) | payer OTHER, SELFPAY ==
[2023-06-14] VITALS (13 sets, daily range): BP systolic 102–134; BP diastolic 68–90; PULSE 60–78; RESP 13–18; TEMP 36.5–36.8; O2SAT 98–100; BMI 24.3
--- NOTE | ~2023-06-14 | MR_ITS ---
EXAMINATION: MR cervical spine wo/w con DATE: 06/15/2023 16:12 INDICATION: Left lower extremity numbness. TECHNIQUE: Magnetic resonance imaging (MRI) of the cervical spine was performed without and with 13 m L MultiHance intravenous contrast. COMPARISON: None FINDINGS: There is kyphosis of cervical spine. Vertebral body heights are normal. There is mildly dec reased disc height at C5-C6. The spinal cord signal intensity is normal. The following disc levels ar e specifically discussed: C2-C3: The disc does not extend beyond the endplate margin. There is no uncovertebral joint osteoarth ritis. There is mild bilateral facet joint osteoarthritis. There is no neural foraminal stenosis. The re is no central canal stenosis. C3-C4: The disc does not extend beyond the endplate margin. There is no uncovertebral joint osteoarth ritis. There is mild right and severe left facet joint osteoarthritis. There is mild left neural fora gerardo stenosis. There is no central canal stenosis. C4-C5: There is a central protrusion. There is no uncovertebral joint osteoarthritis. There is severe right and moderate left facet joint osteoarthritis. There is mild right neural foraminal stenosis. T here is mild central canal stenosis with ventral indentation of the spinal cord. C5-C6: There is a central extrusion. There is mild bilateral uncovertebral joint osteoarthritis. Ther e is mild bilateral facet joint osteoarthritis. There is mild bilateral neural foraminal stenosis. Th ere is mild central canal stenosis with ventral indentation of the spinal cord. C6-C7: There is a central protrusion. There is no uncovertebral joint osteoarthritis. There is mild b ilateral facet joint osteoarthritis. There is no neural foraminal stenosis. There is no central canal stenosis. C7-T1: The disc does not extend beyond the endplate margin. There is mild bilateral uncovertebral sharon nt osteoarthritis. There is moderate bilateral facet joint osteoarthritis. There is mild lateral neur al foraminal stenosis. There is no central canal stenosis. IMPRESSION: 1. Normal spinal cord signal intensity. 2. Mild cervical spondylosis. Reviewed, dictated and finalized at location E. DITCHER
--- NOTE | ~2023-06-14 | XR_ITS ---
EXAMINATION: XR lumbar puncture diagnostic DATE: 06/15/2023 21:05 INDICATION: Lower extremity paresthesias TECHNIQUE: The procedure including the risks and benefits was discussed with the patient. Risks discu ssed included spinal headache, cerebrospinal fluid leak, bleeding, and infection. The patient underst ood the risks and agreed to proceed. A timeout was performed to verify the patient's name, date of , and procedure to be performed. The skin overlying the L3-L4 level was prepped and draped in usual sterile fashion. Subcutaneous 1% lidocaine was used for local anesthesia. A 22 gauge spinal n eedle was advanced under fluoroscopic guidance. The needle was removed and the entry site was cleaned and dressed. There were no immediate complications. A total of 1 fluoroscopic image(s) were obtaine d. The amount of fluoroscopy time used during this procedure was 0.1 minutes. Total DAP was 0.371 Gyc m^2. There were no immediate complications.. FINDINGS: Real-time fluoroscopy demonstrates the needle at the L3-L4 level. Opening pressure was 15 c m water. (Normal range is variably defined as 6-20 cm water and up to 25 cm water in obese patients. Pressure >25 cm water is one of the modified Dandy criteria for idiopathic intracranial hypertension) . 14 mL of clear, colorless fluid was collected in 4 tubes. IMPRESSION: 1. Successful fluoro-guided lumbar puncture. Reviewed, dictated and finalized at location A. ER OFF
--- NOTE | ~2023-06-14 | MR_ITS ---
EXAMINATION: MR brain/brain stem wo/w con DATE: 06/15/2023 16:12 INDICATION: Left lower extremity numbness. TECHNIQUE: Magnetic resonance imaging (MRI) of the brain and brainstem was performed without and with 13 mL MultiHance intravenous contrast. 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 There is no acute ischemic infarct or intracranial hemorr victor manuel. The ventricles are normal in size. There is mild mucosal thickening in the paranasal sinuses. T he orbits are normal. The mastoid air cells are normal. 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 Reviewed, dictated and finalized at location E. AY CAR REPAIRER
--- NOTE | ~2023-06-14 | MR_ITS ---
EXAMINATION: MR thoracic spine wo/w con DATE: 06/15/2023 16:12 INDICATION: Left lower extremity numbness. TECHNIQUE: Magnetic resonance imaging (MRI) of the thoracic spine was performed without and with 13 m L MultiHance intravenous contrast. COMPARISON: CT thoracic spine 06/14/2023 FINDINGS: Bone alignment is normal. Vertebral body heights and intervertebral disc heights are normal . There is a 7 mm mass of increased T2-weighted signal intensity in T1 vertebral body, likely an atyp ical hemangioma. At T9-T10, there is a right central extrusion with mild central canal stenosis. Ther e is multilevel mild facet joint osteoarthritis. On the left, there is mild neural foraminal stenosis at T1-T2. At T4, there is a 3 x 9 mm lesion of increased T2-weighted signal intensity with contrast enhancement in the central and posterior spinal cord. IMPRESSION: 1. 9 mm enhancing lesion in the spinal cord at T4. The differential diagnosis includes multiple scler osis, neuromyelitis optica spectrum disease, acute disseminated encephalomyelitis, transverse myeliti s, and viral myelitis. No surrounding vasogenic edema to suggest neoplasm. Reviewed, dictated and finalized at location E. GROWER IMPRESSION: 1. 9 mm enhancing lesion in the spinal cord at T4. The differential diagnosis i ncludes multiple sclerosis, neuromyelitis optica spectrum disease, acute dissem inated encephalomyelitis, transverse myelitis, and viral myelitis. No surroundi ng vasogenic edema to suggest neoplasm.
--- NOTE | ~2023-06-14 | MR_ITS ---
EXAMINATION: MR lumbar spine wo/w con DATE: 06/15/2023 09:13 INDICATION: Numbness to the lower extremities TECHNIQUE: Magnetic resonance imaging (MRI) of the lumbar spine was performed without and with 13 mL Multihance intravenous contrast. Sequences included sagittal T2-weighted FSE, sagittal T2-weighted FS FSE, and sagittal and axial T1-weighted FSE. Postcontrast sequences included axial T2-weighted FSE, sagittal T1-weighted FSE, and axial and sagittal T1-weighted FS FSE. COMPARISON: CT lumbar spine dated 06/14/2023 FINDINGS: Alignment is normal. Vertebral body heights are normal. Normal marrow signal. Disc heights are hanna l. The conus medullaris terminates at L1. There is normal signal in the caudal spinal cord. Paraverte bral soft tissues are unremarkable. The following disc levels are specifically discussed: T12-L1: Disc is mildly bulging. There is no facet joint osteoarthritis. There is no neural foraminal stenosis. There is minimal central canal stenosis. L1-L2: Disc is mildly bulging. There is mild bilateral facet joint osteoarthritis. There is no neural foraminal stenosis. There is minimal central canal stenosis. L2-L3: Disc is bulging. There is mild bilateral facet joint osteoarthritis. There is minimal bilatera l neural foraminal stenosis. There is mild central canal stenosis. L3-L4: Disc is bulging. There is mild left and moderate right facet joint osteoarthritis. There is mi ld bilateral neural foraminal stenosis. There is mild central canal stenosis. L4-L5: Disc is bulging. There is mild bilateral facet joint osteoarthritis. There is mild bilateral n eural foraminal stenosis. There is minimal central canal stenosis. L5-S1: Disc is mildly bulging. There is mild left and moderate right facet joint osteoarthritis. Ther e is no neural foraminal stenosis. There is no central canal stenosis. IMPRESSION: 1. Minimal lumbar spondylosis. Reviewed, dictated and finalized at location A. PROJECT MANAGER
--- NOTE | 2023-06-14 16:35 | ED.LOWEXIN ---
HPI - Extremity Injury (Lower) General Chief Complaint: Extremity Injury, Lower <Geneva Meredith PA-C - Last Filed: 06/14/23 17:33> Stated Complaint: bilat leg numbness <DARRELL Zhao Last Filed: 06/14/23 17:33> Time Seen by Provider: 06/14/23 15:36 <DARRELL Zhao Last Filed: 06/14/23 17:33> Source: patient <DARRELL Zhao Last Filed: 06/14/23 17:33> Mode of arrival: ambulatory <DARRELL Zhao Last Filed: 06/14/23 17:33> Limitations: no limitations <DARRELL Zhao Last Filed: 06/14/23 17:33> History of Present Illness HPI Narrative: This is a 42 year old female that presents to the ER for lower extremity paresthesias ongoing over the last couple of weeks. Reports she started to have left foot paresthesias. This has extended up into her left groin. Over the last couple of days she has also started to have right foot paresthesias. She was evaluated in our emergency department last night and recommended to stay in the hospital for further evaluation. She did not have child care associate at that time. Presents today for further management. <Geneva Meredith PA-C - Last Filed: 06/14/23 17:33> Related Data Home Medications: Home Medications Medication Instructions Recorded Confirmed cyanocobalamin (vitamin B-12) 250 250 mcg PO DAILY 06/14/23 06/16/23 mcg tablet multivitamin-ferrous 1 tablet PO DAILY 06/14/23 06/16/23 fumarate-folic acid 18 mg-400 mcg tablet <DARRELL Zhao Last Filed: 06/14/23 17:33> Allergies/Adverse Reactions: Allergies Allergy/AdvReac Type Severity Reaction Status Date / Time nitrofurantoin Allergy Intermediate Itching Verified 06/14/23 18:29 [From Macrobid] Sulfa (Sulfonamide Allergy Unknown Itching Verified 06/14/23 18:29 Antibiotics) SHELL FISH Allergy Intermediate FACE SWELLS Uncoded 06/14/23 14:26 <Geneva Meredith PA-C - Last Filed: 06/14/23 17:33> Review of Systems Review of Systems: CONSTITUTIONAL: Denies fever SKIN: Denies rash MUSCULOSKELETAL: Denies back pain, joint pain, or myalgia. NEUROLOGIC: Reports numbness. Denies weakness. <Geneva Meredith PA-C - Last Filed: 06/14/23 17:33> All systems reviewed & are unremarkable except as noted in HPI and below <Geneva Meredith PA-C - Last Filed: 06/14/23 17:33> [facility] Past Medical History Medical History: Medical History (Updated 06/17/23 @ 11:26 by OZZIE Segundo) Anxiety Headache <Geneva Meredith PA-C - Last Filed: 06/14/23 17:33> Surgical History Surgical History: Surgical History History of section <Geneva Meredith PA-C - Last Filed: 06/14/23 17:33> Family History Family History: Family History Sibling Diabetes mellitus <Geneva Meredith PA-C - Last Filed: 06/14/23 17:33> Social History Social History: Social History Social History: Surrogate medical decision maker: Zack Herr, spouse. Code status: Full code. Smoking packs per day: 1 Smoking cigarettes per day: 20.0 Years smoked: 15 Smoking pack-years: 15.00 Smoking status: Former smoker Tobacco type: cigarettes Second hand tobacco smoke exposure: No Additional smoking assessment comments: quit 10 years ago Alcohol intake: current Drinks per week: 4 Substance use: never Substance use type: does not use Do You Feel Safe in your Home?: Yes Lack of Transportation: No Lack of Food: Never True Current Housing: I Have Housing Concerned About Future Housing: No Difficulty Paying Gas/Electric Bills: No Difficulty Paying for Meds: No Currently Unemployed: No Education: Bachelor's Degree Difficulty w/ Childcare or Family Care: No Living arrangements: with family Spiritual care tre
--- NOTE | 2023-06-14 18:16 | ADMGEN ---
This patient, Nuris Herr, was admitted to 2 Medical Room 254-01. Patient/family oriented to hospital policies and general routines including ID bracelet, bed and alarms, visiting hours, pain management, procedures, bathroom and other care routines, personal items, smoking policy, room service/diet, and visiting hours. Information on how to activate the Rapid Response Team has been discussed. Patient/Family are encouraged to report perceived risks to care and to ask questions if they do not understand what they are told or what they should do.
--- NOTE | 2023-06-14 21:47 | PM.IMHP ---
H&P: HPI History of Present Illness Date/Time: 06/14/23 21:47 Chief Complaint: Numbness Narrative: 42 y/o F presents here with lower extremity paresthesias and numbness with PMH of anxiety. Patient initially presented last night around midnight for lower extremity paresthesias and numbness. Patient reports she began developing numbness and paresthesias to her left knee extending to her left foot. Reports that she woke up with the numbness on 06/02. Patient reports she is a runner - does approximately 5 miles per day fo the past 5 years.Patient ran day before onset, otherwise no trauma or injury before symptom onset. Patient took one day off, then continued running daily, and now stopped in the last 4 days due to worsening symptoms. Progressed to her left hip, buttock, pelvis, and saddle region. Described numbness as almost midline, as if you luis armando a line from the underwear line extending down and involving her labia, buttocks and extends laterally then distally through LLE. Now also having paresthesias and numbness in her right foot, onset yesterday. Initially sought care at , labs are unremarkable and recommended follow-up with PCP. Patient then saw her PCP (06/07), started on steroids x5 days without improvement and told they suspected symptoms were related to an inflamed disc. CT head and CTA brain were unremarkable. CT L-spine showed mild bilateral L4-L5 foraminal stenosis. Case was discussed with Neurology who advised to obtain a CT thoracic spine and call with results. Initially plan was to admit for MRI and possible LP. Patient was unable to stay for admission and elected to leave [place] due to lack of childcare. Patient returned today, no worsening of symptoms in interval. No tick bites in the last year. Last major illness was COVID on 05/01 and an abscessed tooth shortly after. Otherwise no complaints. Initial VS at presentation: 97.9 F, HR 72, RR 15, 103/80, 100% on RA. ED workup showed no leukocytosis, mild anemia with a hemoglobin of 10.9, creatinine 0.5, negative troponin, and UA not indicative of UTI. Head and neck CTA was unremarkable. L spine CT showed minimal degenerative spondylosis. CXR showed normal chest. Thoracic spine CT showed no significant abnormalities. Review of Systems Review of Systems: All systems reviewed & are unremarkable except as noted in HPI and below PMFSH Past Medical History Medical History (Updated 06/14/23 @ 22:56 by Katelyn Taylor APRN) Anxiety Surgical History Surgical History Previous section Family History Family History Sibling Diabetes mellitus Social History Social History Smoking packs per day: 1 Smoking cigarettes per day: 20.0 Years smoked: 15 Smoking pack-years: 15.00 Smoking status: Former smoker Additional smoking assessment comments: quit 10 years ago Alcohol intake: current Substance use: never Substance use type: does not use Do You Feel Safe in your Home?: Yes Lack of Transportation: No Lack of Food: Never True Current Housing: I Have Housing Concerned About Future Housing: No Difficulty Paying Gas/Electric Bills: No Difficulty Paying for Meds: No Currently Unemployed: No Education: Bachelor's Degree Difficulty w/ Childcare or Family Care: No Living arrangements: with family Gender identity (if verbalized by the patient): Female Spiritual care concerns: No Meds Home Medications and Allergies Home Medications Medication Instructions Recorded Confirmed Type cyanocobalamin (vitamin B-12) 250 250 mcg PO DAILY 06/14/23 06/14/23 History mcg tablet multivitamin-ferrous 1 tablet PO DAILY 06/14/23 06/14/23 History fumarate-folic acid 18 mg-400 mcg tablet Allergies Allergy/AdvReac Type Severity Reaction Stat
[2023-06-14] MEDS: LACTATED RINGERS 1,000 ML 100 ML IV CONT (22:43)
[2023-06-15] VITALS (8 sets, daily range): BP systolic 102–125; BP diastolic 64–78; PULSE 66–77; RESP 16–20; TEMP 36.7–36.9; O2SAT 98–100
[2023-06-15 06:06] LABS: Basophils Absolute Auto 0.1 K/mm3 (0.0-0.1); Basophils Percent Auto 0.9 % (0.2-1.2); Eosinophils Absolute Auto 0.3 K/mm3 (0-0.3); Eosinophils Percent Auto 3.6 % (0-4.4); Hematocrit 37.2 % (37.0-47.0); Hemoglobin 12.3 g/dL (12.0-15.0); Immature Granulocyte Absolute 0.02 K/mm3 (0.00-0.031); Immature Granulocyte Percent A 0.3 % (0-0.5); Lymphocytes Absolute Auto 2.79 K/mm3 (0.9-3.2); Lymphocytes Percent Auto 37.6 % (18.3-44.2); Mean Corpuscular HGB Conc 33.1 g/dl (32-36); Mean Corpuscular Hemoglobin 29.8 pg (26-34); Mean Corpuscular Volume 90.1 fl (80-100); Mean Platelet Volume 9.5 fl (7.4-10.4); Monocytes Absolute Auto 0.4 K/mm3 (0.1-0.6); Monocytes Percent Auto 4.9 % (2.6-8.5); Neutrophils Absolute Auto 3.9 K/mm3 (1.3-6.7); Neutrophils Percent Auto 52.7 % (45.5-73.1); Platelet Count Result 251 k/mm3 (150-375); Red Blood Count 4.13 M/mm3 (4.2-5.4); Red Cell Distribution Width 12.8 % (11.5-14.5); White Blood Count 7.4 K/mm3 (4.5-10.0)
[2023-06-15 06:21] LABS: Anion Gap 5 mmol/L (8-16); Blood Urea Nitrogen 10 mg/dL (7-17); Calcium 9.2 mg/dL (8.4-10.2); Carbon Dioxide 27 mmol/L (22-30); Chloride 105 mmol/L (98-107); Estimated CRCL calculation 116 ml/min; Estimated Glomerular Filt Rate > 60; Glucose 96 mg/dL (65-110); Potassium 3.8 mmol/L (3.4-5.0); Sodium 137 mmol/L (137-145)
[2023-06-15 07:25] LABS: Folic Acid 19.8 ng/mL (2.76->20); Vitamin B12 > 1000.0 pg/mL (239-931)
[2023-06-15] MEDS: CYANOCOBALAMIN 250 MCG TABLET PO (09:18)
[2023-06-15] MEDS: MULTIVITAMINS /C LUTEIN (CENTRUM SILVER) TABLET *BKC 1 TAB PO (09:18)
--- NOTE | 2023-06-15 09:18 | WPDNEURCNPN ---
Assessment and Plan Assessment and plan (1) Bilateral leg numbness: Code(s): R20.0 - Anesthesia of skin Status: Acute Plan Nuris Herr is a 42 year old female with a history of vitamin B12 deficiency presenting for evaluation of lower extremity paraesthesias and numbness. Symptoms initially started in the LLE, now involving the entire left leg, with progression of involvement of the distal RLE as well. Initial CT thoracic and lumbar spine did not show anything significant -- only mild bilateral L4-L5 foraminal stenosis. Lumbar spine with and without contrsat unrevealing as well. Cauda equina syndrome can present asymmetrically but no evidence of compression on lumbar imaging. Also considering AIDP especially with recent vital illness and ascending symptoms. Fortunately strength and reflexes are preserved but could very well by early in the process. - Recommend lumbar puncture with CSF studies looking at infectious and inflammatory causes - MRI brain, cervical, and thoracic spine with and without contrast - I discussed with patient that I am concerned about a progressive disorder that could potentially lead to lower extremity weakness/paralysis, respiratory difficulties, autonomic dysfunction if left untreated. I recommend that she stay for further evaluation and treatment. Consult date: 06/15/23 Reason for consult: Lower extremity numbness/parasthesias HPI: Nuris Herr is a 42 year old female with a history of anxiety and vitamin B12 deficiency presenting for evaluation of lower extremity paraesthesias and numbness. Patient first started to develop numbness/paraesthesias of her left knee extending down to her left foot on At the time she reported lower back pain as well. She denies any trauma to her back. She runs on a daily basis. Gradually symptoms became worse, the numbness progressed to her L hip, buttock, pelvic, and saddle region. She describes the numbness as midline, affecting the left side including the labia, buttocks down to her feet. However, a few days ago she started having paraesthesias and numbness in her right foot. She initially went to urgent care who thought this was radiculopathy, so she was recommended to follow-up with her PCP. She saw her PCP on and they started her on oral steroids, but she had no improvement. Patient presented on 06/14 to the ED for persistent symptoms -- had CT head, CTA brain/carotid, CT lumbar and thoracic spine. CT lumbar spine showed only mild bilateral L4-L5 foraminal stenosis. All other imaging was unremarkable. She left AMA due to not have childcare. However, she returned the following day. Labs so far unrevealing. UA is negative for infection. B12 and folate levels are normal. MRI lumbar spine only shows mild spondylosis. It was done with and without contrast. Patient continues to have strange sensation in the entire LLE, and some numbness/tingling in the R toes. She denies any significant back pain. She has had recent viral illness which she recovered from about a week ago. She had COVID around [place] (about six weeks ago). She has been urinating and stooling normally. No changes in her vision. No dysphagia or change in her speech. Review of Systems Review of Systems: All systems reviewed & are unremarkable except as noted in HPI and below PMFSH Past Medical History Medical History Anxiety Surgical History Surgical History Previous section Family History Family History Sibling Diabetes mellitus Social History Social History Smoking packs per day: 1 Smoking cigarettes per day: 20.0 Years smoked: 15 Smoking pack-years: 15.00 Smoking status: Former smoker Additional smoking assessment comments: quit 10 years ago Alcohol intake
--- NOTE | 2023-06-15 11:13 | PC.NURSE ---
On 06/15/23, the student, [Oneil Agosto], provided care and completed [facility] documentation on this patient. I have reviewed the student's documentation and agree with the findings.
[2023-06-15 11:49] LABS: HIV 1/2 Ab P24 Ag Result Negative (Negative)
[2023-06-15 11:52] LABS: Rapid Plasma Reagin Non-Reactive (NonReactive)
--- NOTE | 2023-06-15 14:37 | PM.DS ---
DS: Admitting Diagnosis Discharge Date 06/15/2023 Admitting Diagnosis Bilateral lower extremity Paresthesias DS: Discharge Diagnosis Discharge Diagnosis (1) Bilateral leg numbness: Code(s): R20.0 - Anesthesia of skin Status: Acute Assessment and Plan: -CTA head/neck: Unremarkable exam -L-spine CT: Minimal degenerative spondylosis -T-spine CT: No significant abnormality seen. -CXR: Normal chest -neurology consulted, ED spoke with Manuel GALINDO. -MRI of lumbar spine with/without contrast -suspect patient will need LP, defer to neuro -glucose ranging from 90-100 since 2020 -add Shikha Bar panel, HIV, Lyme disease antibody, RPR, B12, TSH, and folic acid -given patient's history of running, suspect etiology is more inflammation/structural. However will rule out other etiologies given symptoms worsened while patient was on short course of steroids. 06/15/2023: Pt's MRI was negative for any acute findings of the lumbar spine with exception of minimal disc bulge at all levels. Previous imaging of CTA head and neck, Lumbar spine and Thoracic spine were all unremarkable. Neurology was consulted, evaluated and requested additional imaging of Brain stem, Cervical and Thoracic spine as well as LP to be done. HIV 1/2 negative and RPR non-reactive. Lyme, CMV, EBV and VZV are all still pending along with CSF labs. Pt has not had progression of the sensation while here. She is refusing to stay in the hospital despite the fact we have no causative diagnosis, she has no treatment plan, and we do not have results of tests. She is adamant that she will leave due to family situation at home. She is educated that she must leave AMA then and she is agreeable to this plan. She was educated on the risks of leaving being worsening of her ability to ambulate, loss of function of muscles and extremities, undue pain and suffering, and ultimately irreversible damage to the nerves any muscles as well as . Benefits of staying included specialized treatment from a neurologist, accurate dx and development of treatment plan and overall improvement in her level of functioning, but pt still refuses to stay and signs out AMA. DS: Summary Hospital Course Reason for hospitalization: Paresthesias of the BLE Hospital Course: This 42 year old female patient w/only PMH known of anxiety, initially presented two nights ago for lower extremity paresthesias and numbness specifically to the left lower extremity that has progressed as well as now starting in the right foot.? Patient reports she began developing numbness and paresthesias to her left knee extending down to her left foot. Reports that she woke up with this numbness on 06/02. Patient reports she is a runner - does approximately 5 miles per day fo the past 5 years on an elliptical machine. Patient ran day before onset, otherwise no trauma or injury before symptom onset. Patient took one day off, then continued running daily, and now stopped in the last 4 days due to worsening symptoms. Progressed to her left hip, buttock, pelvis, and saddle region. Described numbness as almost midline, as if you luis armando a line from the underwear line extending down and involving her labia, buttocks and extends laterally then distally through LLE. Now also having paresthesias and numbness in her right foot, onset yesterday.? Initially sought care at , labs are unremarkable and recommended follow-up with PCP.? Patient then saw her PCP (06/07), started on steroids x5 days without improvement and told they suspected symptoms were related to an inflamed disc.? CT head and CTA brain were unremarkable.? CT L-spine showed mild bilateral L4-L5 foraminal stenosis. Case was discussed with Neurology who advised to obtain a CT thoracic spine and call with results.? Initially plan was to admit for MRI and possible LP.? Patient was unable to stay for admission and elected to leave AMA due to lack of childcare two nights ago, but returned yesterday due to inc
--- NOTE | 2023-06-15 14:46 | PCCCNOTE ---
On 06/15/23, the student, [Laura Dias], provided care and completed [facility] documentation on this patient. I have reviewed the student's documentation and agree with the findings.
[2023-06-15 16:47] LABS: Prothrombin Time 13.3 Seconds (11.1-14.7)
[2023-06-15 16:48] LABS: Partial Thromboplastin Time 23.3 SECONDS (22.3-36.8)
[2023-06-15 18:32] LABS: Glucose CSF 53 mg/dL (40-70); Total Protein CSF 40 mg/dL (12-60)
[2023-06-15 19:01] LABS: Appearance CSF Clear (Clear); CSF source CSF; Color CSF Colorless (Colorless)
[2023-06-15 19:02] LABS: Neutrophils CSF 0 % (0-6); Nucleated Cell CSF 1 /uL (0-5); Red Blood Cell CSF 0 (0-2)
[2023-06-15 19:04] LABS: Lymphocytes CSF 100 % (40-80); Monocytes CSF 0 % (15-45)
--- NOTE | 2023-06-15 21:13 | PC.NURSE ---
2024 DISCUSSED WITH PT ABOUT NEED TO STAY AND REMAIN LAYING FLAT FOR AWHILE LONGER, PT REFUSES, STATES SHE WILL FOLLOW UP OUTPATIENT. SIGNED AMA PAPER.
[2023-06-17 14:27] LABS: CMV DNA Quant PCR IU/mL Not Detected; Cytomegalovirus DNA Quant PCR Not Detected log IU/mL; Cytomegalovirus DNA Source Serum
[2023-06-18 02:20] LABS: Epstein Barr Virus DNA PCR Not Detected (Not Detected); Source Epstein Barr Virus CSF
[2023-06-18 12:28] LABS: Herpes Simplex Type 1 DNA PCR Not Detected (Not Detected); Herpes Simplex Type 2 DNA PCR Not Detected (Not Detected)
[2023-06-18 16:08] LABS: Lyme Disease Ab (IgM), Blot Negative (Negative); Lyme Disease Ab(IgG), Blot Negative (Negative)
[2023-06-18 18:17] LABS: Source CSF
[2023-06-19 13:22] LABS: Varicella IgM Antibody <=0.90 (<=0.90)
[2023-06-19 13:40] LABS: West Nile Virus, IgM <0.90 index (<0.90)
[2023-06-19 14:35] LABS: EBV Nuclear Ab Interpretation Past; EBV Virus Capsid Ag IgM Ab <36.00 U/mL (<36.00)
[2023-06-20 07:37] LABS: Angiotensin Converting Enzyme 21.2 U/L (9-67)
[2023-06-21 14:33] LABS: Albumin, CSF 22.3 mg/dL (8.0-42.0); Albumin, Serum 4.8 g/dL (3.6-5.1); IgG Index, CSF 0.44 (<0.70); IgG, CSF 2.6 mg/dL (0.8-7.7); Immunoglobulin G, Serum 1270 mg/dL (600-1640); Myelin Basic Protein, CSF <2.0 mcg/L (<=4.0); Oligoclonal Bands (IgG), CSF Absent (Absent)
== END 2023-06-15 20:45 | disposition left against medical advice (07) ==
LOC: ANHED 17:28 → ANH2MED 17:34
PROVIDERS: Student in an Organized Health Care Education/Training Program; Admitting Provider Internal Medicine; Emergency Provider Physician Assistant; Visit Provider Nurse Practitioner Adult Health
DX: R20.2 Paresthesia of skin (principal); R20.0 Anesthesia of skin; M48.061 Spinal stenosis, lumbar region without neurogenic claudication; M47.812 Spondylosis without myelopathy or radiculopathy, cervical region; Z20.822 Contact with and (suspected) exposure to COVID-19; Z11.4 Encounter for screening for human immunodeficiency virus [HIV]; Z87.891 Personal history of nicotine dependence; F10.90 Alcohol use, unspecified, uncomplicated; Z86.16 Personal history of COVID-19; Z79.899 Other long term (current) drug therapy; Z53.29 Procedure and treatment not carried out because of patient's decision for other reasons
CPT/HCPCS: 36415; 62328; 70496; 70498; 70553; 71045; 72128; 72131; 72156; 72157; 72158; 80048; 80053; 81001; 81025; 82040; 82042; 82164; 82607; 82746; 82784; 82945; 83873; 83916; 84157; 84443; 84484; 85025; 85610; 85730; 86592; 86617; 86664; 86665; 86703; 86787; 86788; 87070; 87102; 87206; 87497; 87529; 87798; 89051; 93005; 96360; 99285; A9270; A9577; G0378; G0379; G0432; J7030; J7120; Q9967

== ENCOUNTER 2023-06-16 09:32 | Inpatient (IN) | payer OTHER, SELFPAY ==
[2023-06-16] VITALS (36 sets, daily range): BP systolic 95–128; BP diastolic 58–81; PULSE 63–119; RESP 10–20; TEMP 36.6–36.7; O2SAT 96–100; BMI 25.8
--- NOTE | ~2023-06-16 | XR_ITS ---
EXAMINATION: XR injection blood patch w img DATE: 06/18/2023 11:17 INDICATION: Headache after lumbar puncture. TECHNIQUE: The procedure including the risks, benefits, and alternatives was discussed with the patie nt. Risks discussed included spinal headache, bleeding, and infection. The patient understood the ris ks and agreed to proceed. A timeout was performed to verify the patient's name, date of , and procedure to be performed. The skin overlying the L3-L4 level was prepped and draped in usual steri le fashion. Subcutaneous 1% lidocaine was used for local anesthesia. A 20 gauge spinal needle was a dvanced under fluoroscopic guidance and using loss of resistance technique. With the patient's head e levated, there was no cerebrospinal fluid in the needle hub. 10 mL of the patient's blood was then in jected into the epidural space. The needle was removed and the entry site was cleaned and dressed. T here were no immediate complications. Fluoroscopy exposure time was 0.1 minutes. The total number of images was 1. FINDINGS: Real-time fluoroscopy demonstrates the needle at the L3-L4 level. IMPRESSION: 1. Successful fluoro-guided lumbar blood patch. Reviewed, dictated and finalized at location A. 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
[2023-06-16 10:58] LABS: Appearance Urine Clear (Clear); Bilirubin Urine Negative (Negative); Blood Urine Negative (Negative); Color Urine Yellow (Yellow); Glucose Urine UA Negative (Negative); Ketones Urine 2+ mg/dL (Negative); Leukocyte Esterase Ur Negative LEU/UL (Negative); Nitrate Urine Negative (Negative); Protein Urine Negative (Negative); Urobilinogen Urine 0.2 mg/dL (<2.0); pH Urine >=9.0 (5.0-9.0)
[2023-06-16 10:59] LABS: Add Urine Microscopic? NO
[2023-06-16 11:02] LABS: Basophils Percent Auto 0.4 % (0.2-1.2); Eosinophils Absolute Auto 0.1 K/mm3 (0-0.3); Eosinophils Percent Auto 1.1 % (0-4.4); Hematocrit 36.7 % (37.0-47.0); Hemoglobin 12.5 g/dL (12.0-15.0); Immature Granulocyte Absolute 0.03 K/mm3 (0.00-0.031); Immature Granulocyte Percent A 0.4 % (0-0.5); Lymphocytes Absolute Auto 1.22 K/mm3 (0.9-3.2); Lymphocytes Percent Auto 16.8 % (18.3-44.2); Mean Corpuscular HGB Conc 34.1 g/dl (32-36); Mean Corpuscular Hemoglobin 29.6 pg (26-34); Mean Platelet Volume 9.3 fl (7.4-10.4); Monocytes Absolute Auto 0.4 K/mm3 (0.1-0.6); Monocytes Percent Auto 5.2 % (2.6-8.5); Neutrophils Absolute Auto 5.5 K/mm3 (1.3-6.7); Neutrophils Percent Auto 76.1 % (45.5-73.1); Platelet Count Result 244 k/mm3 (150-375); Red Blood Count 4.22 M/mm3 (4.2-5.4); Red Cell Distribution Width 12.4 % (11.5-14.5); White Blood Count 7.3 K/mm3 (4.5-10.0)
[2023-06-16 11:07] LABS: Alanine Aminotransferase 21 U/L (6-35); Albumin Level 4.5 g/dL (3.5-5.1); Alkaline Phosphatase 43 U/L (38-126); Anion Gap 9 mmol/L (8-16); Aspartate Amino Transferase 25 U/L (14-36); Bilirubin,Total 0.9 mg/dL (0.2-1.3); Blood Urea Nitrogen 7 mg/dL (7-17); Calcium 9.3 mg/dL (8.4-10.2); Carbon Dioxide 21 mmol/L (22-30); Chloride 107 mmol/L (98-107); Estimated Glomerular Filt Rate > 60; Glucose 103 mg/dL (65-110); Lipase 105 U/L (23-300); Potassium 3.5 mmol/L (3.4-5.0); Sodium 137 mmol/L (137-145)
[2023-06-16] MEDS: SODIUM CHLORIDE 0.9% IV 1,000 ML 999 ML IV CONT (11:08)
[2023-06-16 11:50] LABS: Influenza A QL RT-PCR Negative (Negative); Influenza B QL RT-PCR Negative (Negative); SARS-CoV-2 RNA PCR Positive (Negative)
--- NOTE | 2023-06-16 11:53 | ED.GENADULT ---
HPI - General Adult General Chief complaint: Nausea/Vomiting/Diarrhea Stated complaint: nausea/lightheaded. Time Seen by Provider: 06/16/23 10:42 History of Present Illness HPI narrative: Patient is a 42-year-old female who presents to the emergency department this morning complaining of worsening bilateral lower extremity numbness. Patient was seen at our facility a few days ago on the for the symptoms that have started approximately 9 days prior to the 13 of [address] Patient had CT of her lower back which revealed no acute process. She left against medical advice despite our recommendation for admission and neurology consultation. Patient did return the next day on the in which she was agreeable to hospital admission and Neurology consultation. She was seen by Dr. Palmer and MRIs of the patient's brain and entire spine were obtained along with an LP. Patient stayed until the next day the where she signed out AMA, despite the neurologist informing the patient that she could have a demyelinating disease or an ascending neuromuscular disease which could lead to paralysis, patient insisted on leaving against medical advice. Patient is now returning today complaining of worsening of her lower extremity numbness stating that the numbness in her left leg now feels as though it has extended up to her knee and she has tingling along her entire left lower extremity. MRIs obtained did reveal a 9 mm enhancing lesion at T4. 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 She is currently denying any additional symptoms including chest pain, shortness of breath, nausea, vomiting, abdominal pain, dysuria, hematuria, constipation, diarrhea, melena, hematochezia, fevers or chills. She denies any headaches, dizziness, blurry visions or focal weakness. There are no other modifying, alleviating, or precipitating factors at this time. Related Data Home Medications Medication Instructions Recorded Confirmed cyanocobalamin (vitamin B-12) 250 250 mcg PO DAILY 06/14/23 06/14/23 mcg tablet multivitamin-ferrous 1 tablet PO DAILY 06/14/23 06/14/23 fumarate-folic acid 18 mg-400 mcg tablet Allergies Allergy/AdvReac Type Severity Reaction Status Date / Time nitrofurantoin Allergy Intermediate Itching Verified 06/14/23 18:29 [From Macrobid] Sulfa (Sulfonamide Allergy Unknown Itching Verified 06/14/23 18:29 Antibiotics) SHELL FISH Allergy Intermediate FACE SWELLS Uncoded 06/14/23 14:26 Review of Systems Review of Systems: All systems are reviewed and are negative unless stated otherwise in the HPI. [facility] Past Medical History Medical History Anxiety Surgical History Surgical History Previous section Family History Family History Sibling Diabetes mellitus Social History Social History Smoking packs per day: 1 Smoking cigarettes per day: 20.0 Years smoked: 15 Smoking pack-years: 15.00 Smoking status: Former smoker Additional smoking assessment comments: quit 10 years ago Alcohol intake: current Substance use: never Substance use type: does not use Do You Feel Safe in your Home?: Yes Lack of Transportation: No Lack of Food: Never True Current Housing: I Have Housing Concerned About Future Housing: No Difficulty Paying Gas/Electric Bills: No Difficulty Paying for Meds: No Currently Unemployed: No Education: Bachelor's Degree Difficulty w/ Childcare or Family Care: No Living arrangements: with family Gender identity (if verbalized by the patient): Female Spiritual care concerns: No Exam Narrative: General: Alert, awake, afebrile, in no acute distress. HEENT: PERRL, no rhin
[2023-06-16] MEDS: PANTOPRAZOLE SODIUM IV 40 MG VIAL IV PUSH (12:16)
--- NOTE | 2023-06-16 14:32 | ADMGEN ---
This patient, Nuris Herr, was admitted to 2 Medical Room 251-. Patient/family oriented to hospital policies and general routines including ID bracelet, bed and alarms, visiting hours, pain management, procedures, bathroom and other care routines, personal items, smoking policy, room service/diet, and visiting hours. Information on how to activate the Rapid Response Team has been discussed. Patient/Family are encouraged to report perceived risks to care and to ask questions if they do not understand what they are told or what they should do.
--- NOTE | 2023-06-16 16:12 | PM.IMHP ---
H&P: HPI History of Present Illness Date/Time: 06/16/23 15:15 Chief Complaint: Numbness and weakness. Narrative: This is a pleasant 42-year-old female who presented to the emergency department earlier today via private vehicle for evaluation of weakness and numbness. The patient provides the following history. She awoke on the morning of 06/02/2023 with numbness of the left lower extremity from the foot to the knee. She runs 5 miles a day and has for least the past 5 years and she thought perhaps it was related to overuse and she stopped running for approximately 4 days but the symptoms did not improve. In fact they worsened and the paresthesias progressed further up the leg and into the groin. She was previously evaluated for her symptoms at urgent care and by her primary care provider and she was started on steroids for 5 days with concerns for possible nerve impingement. Her symptoms did not improve. She was seen in the emergency department on 06/13/2023 after she began experiencing numbness in the right foot and due to her constellation of symptoms she was admitted for further workup to include full spine MRI and lumbar puncture. She left against medical advice because of some personal thing she had to attend to at home. She returned today for admission and workup after she received a phone call from Dr. Palmer who reported that enhancing lesion was noted in the spinal cord at T4 and she needed further workup and treatment. Her symptoms have not improved but they have not progressed either. She denies fever, chills, sweats, headache, visual changes, focal weakness, facial droop, difficulty speaking and swallowing, chest pain, shortness of breath, cough, sinus congestion, and sore throat. With further questioning she does report that she and her family all had COVID the 1st week of May and though symptoms have fully resolved. She continues to test positive for COVID today but is asymptomatic. Review of Systems Review of Systems: Twelve systems were reviewed and are negative except for as per HPI. [facility] Past Medical History Medical History Anxiety Surgical History Surgical History History of section Family History Family History Sibling Diabetes mellitus Social History Social History Social History: Surrogate medical decision maker: Zack Herr, spouse. Code status: Full code. Smoking packs per day: 1 Smoking cigarettes per day: 20.0 Years smoked: 15 Smoking pack-years: 15.00 Smoking status: Former smoker Tobacco type: cigarettes Second hand tobacco smoke exposure: No Additional smoking assessment comments: quit 10 years ago Alcohol intake: current Drinks per week: 4 Substance use: never Substance use type: does not use Do You Feel Safe in your Home?: Yes Lack of Transportation: No Lack of Food: Never True Current Housing: I Have Housing Concerned About Future Housing: No Difficulty Paying Gas/Electric Bills: No Difficulty Paying for Meds: No Currently Unemployed: No Education: Bachelor's Degree Difficulty w/ Childcare or Family Care: No Living arrangements: with family Spiritual care concerns: No Meds Home Medications and Allergies Home Medications Medication Instructions Recorded Confirmed Type cyanocobalamin (vitamin B-12) 250 250 mcg PO DAILY 06/14/23 06/16/23 History mcg tablet multivitamin-ferrous 1 tablet PO DAILY 06/14/23 06/16/23 History fumarate-folic acid 18 mg-400 mcg tablet Allergies Allergy/AdvReac Type Severity Reaction Status Date / Time nitrofurantoin Allergy Intermediate Itching Verified 06/14/23 18:29 [From Macrobid] Sulfa (Sulfonamide Allergy Unknown Itching Verified 06/14/23 18:
[2023-06-16] MEDS: ACETAMINOPHEN 325 MG TABLET 650 MG PO (16:38)
[2023-06-16] MEDS: methylPREDNISolone SOD SUCC 500 MG in DEXTROSE 5% 100 ML 200 MG IVPB (16:42)
[2023-06-17] VITALS (7 sets, daily range): BP systolic 102–118; BP diastolic 52–73; PULSE 70–91; RESP 14–16; TEMP 36.5–37; O2SAT 99–100
[2023-06-17 05:05] LABS: Hematocrit 33.8 % (37.0-47.0); Hemoglobin 11.6 g/dL (12.0-15.0); Mean Corpuscular HGB Conc 34.3 g/dl (32-36); Mean Corpuscular Hemoglobin 29.7 pg (26-34); Mean Corpuscular Volume 86.7 fl (80-100); Platelet Count Result 246 k/mm3 (150-375); Red Cell Distribution Width 12.4 % (11.5-14.5); White Blood Count 6.8 K/mm3 (4.5-10.0)
[2023-06-17 05:36] LABS: Anion Gap 8 mmol/L (8-16); Blood Urea Nitrogen 7 mg/dL (7-17); CRP < 0.5 mg/dL (<1.0); Calcium 9.1 mg/dL (8.4-10.2); Carbon Dioxide 22 mmol/L (22-30); Chloride 108 mmol/L (98-107); Estimated CRCL calculation 116 ml/min; Estimated Glomerular Filt Rate > 60; Glucose 126 mg/dL (65-110); Sodium 138 mmol/L (137-145)
[2023-06-17 05:40] LABS: Potassium 3.8 mmol/L (3.4-5.0)
[2023-06-17 05:56] LABS: Erythrocyte Sedimentation Rate 12 mm/hr (0-20)
[2023-06-17] MEDS: ACETAMINOPHEN 325 MG TABLET 650 MG PO (06:25)
[2023-06-17] MEDS: methylPREDNISolone SOD SUCC 500 MG in DEXTROSE 5% 100 ML 200 MG IVPB ×2 (08:39→17:18)
[2023-06-17] MEDS: ENOXAPARIN 40 MG/0.4 ML SYRINGE SUB-Q (08:39)
[2023-06-17] MEDS: ONDANSETRON INJ 4 MG/2 ML VIAL IV PUSH (09:36)
--- NOTE | 2023-06-17 10:50 | PC.NURSE ---
Spoke with Dr. Ludwig is radiology. Blood patch may be able to be done tomorrow as Dr. Ramirez is available tomorrow but he does not know if he will do it on the weekend. Will check in tomorrow
--- NOTE | 2023-06-17 11:03 | PM.IMPN ---
Progress Note: A&P Assessment and Plan (1) Spinal cord lesion: Code(s): G95.9 - Disease of spinal cord, unspecified Status: Acute Assessment and Plan: As evidenced by advanced imaging with MRI, there is a noted 9 mm enhancing lesion at T4. Neurology, Dr. Palmer has been consulted Continue with ordered IV Solumedrol 500 mg BID for 5 days. Continue to monitor Neuro assessments. LP with high Neutrophils in CSF. RPR non-reactive, Lyme tests pending, West Nile and HSV pending, HIV Negative, EBV pending, VZV pending (2) Bilateral leg numbness: Code(s): R20.0 - Anesthesia of skin Status: Acute Assessment and Plan: Secondary to spinal lesion noted at T4. Unchanged paresthesias today with neither worse nor improved. Continue high dose steroid treatment and monitor. (3) Headache: Code(s): R51.9 - Headache, unspecified Status: Acute Assessment and Plan: Status post LP on , and has been present and persistent ever since. Unable to do blood patch on Monday, but this would help pt's headache. PRN meds ordered in the interim time for pain and for nausea. (4) Anxiety: Code(s): F41.9 - Anxiety disorder, unspecified Status: Chronic Assessment and Plan: Will order prn ativan for high anxiety use. (5) COVID: Code(s): U07.1 - COVID-19 Status: Acute Assessment and Plan: Recently was positive in May. No current symptoms and I suspect that this is not an acute infection. Time Spent With Patient Time with patient: 25 - 35 minutes Subjective Date/time seen: 06/17/23 0830 Interval history: This 42 year old female pt, known to this provider from being here earlier this week and signing out AMA after testing that included MRI of brain, Cervical and thoracic spine as well as LP, returned to the ER last evening with worsening of lower extremity numbness. Patient was seen at our facility a few days ago on the for the symptoms that have started approximately 9 days prior to the 13 of June.? Patient had CT of her lower back which revealed no acute process.? She left against medical advice despite our recommendation for admission and neurology consultation.? Patient did return the next day on the in which she was agreeable to hospital admission and Neurology consultation.? She was seen by Dr. Palmer and MRIs of the patient's brain and entire spine were obtained along with an LP.? Patient stayed until the next day the 8th where she signed out AMA, despite the neurologist informing the patient that she could have a demyelinating disease or an ascending neuromuscular disease which could lead to paralysis, patient insisted on leaving against medical advice. MRIs obtained did reveal a 9 mm enhancing lesion at T4. Dr. Palmer discussed the pt with the ER physician and was started on high dose Solumedrol 500 mg BID for 5 days. In this interim time, the pt has also developed a headache after the LP that is worse when she sits up from a supine position, and Neurology has been consulted to see if a blood patch can be placed. Currently she is being treated with anti-emetics and pain meds. She has no other acute complaints at this time and tells me that her paresthesia symptoms are unchanged. Pt did test positive for COVID in the ER, however, she had covid in May and is currently asymptomatic. Suspect that this is not an acute infection. Review of Systems Review of Systems: All systems reviewed & are unremarkable except as noted in HPI and below Exam Narrative: Const:?? General: comfortab le and no acute di stress? Other: Ca ucasian, nontoxic appearance, normal BMI, female. ? HENMT:?? Face/Nose/Sinus: N ormal nares presen t? Mouth: Yes mois t mucous
--- NOTE | 2023-06-17 12:30 | WPDNEURCNPN ---
Assessment and Plan Assessment and plan (1) Spinal cord lesion: Code(s): G95.9 - Disease of spinal cord, unspecified Status: Acute (2) Headache: Code(s): R51.9 - Headache, unspecified Status: Acute (3) Bilateral leg numbness: Code(s): R20.0 - Anesthesia of skin Status: Acute (4) Abnormal magnetic resonance imaging of thoracic spine: Code(s): R93.7 - Abnormal findings on diagnostic imaging of other parts of musculoskeletal system Status: Acute (5) COVID: Code(s): U07.1 - COVID-19 Status: Acute Plan Will continue the Solu-Medrol 500mg b.i.d. which has been already started and further management will be done accordingly subsequent Consult date: 06/17/23 HPI: Nuris Herr is a 42 year old femaleAdmitted to the hospital through the emergency room complaining of worsening bilateral lower extremity numbness patient had been seen in the emergency room on with the information the symptomatology had started 9 days prior to the 13 of June patient had the CT scan of her lower back which revealed no acute process. She left against medical advise despite ER physician recommendation for admission and Neurology consultation. She returns next day on the when she was agreeable to hospital admission and Neurology consultation she was seen by Dr. Palmer and MRI of the brain and entire spine were obtained along with that and spinal fluid studies patient stayed until the next day that is the 8th of the month when she signed against the a.m. 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 she also complained of no headache or dizziness or blurred vision her outpatient medications included vitamin B12 and multivitamins she is allergic to nitrofurantoin sulfa and shellfish her past history is consistent with anxiety previous 15 years smoking history though former smoker quit about 10 years ago current alcohol intake no substance abuser exam in the emergency room documented decreased sensation to the bilateral feet and left lower extremity extending to the mid calf but intact motor strength in bilateral upper and lower extremities with normal and fluent speech vital signs were normal patient was admitted to start on the high-dose steroid for the next 5 days that is Solu-Medrol 500mg b.i.d. and PPI considering the possible demyelinating disease including multiple sclerosis or transverse myelitis her vital signs were normal CBC was normal BMP was complete lab was normal UA was negative she was negative for influenza a influenza B but positive for the SARs COVID . his spinal fluid studies documented only 1 nucleated concetta rest of the results are pendingl, CSF protein 40 glucose 53, thoracic MRI with 9mm enhancing lesion in the spinal cord at T4 raising the possibility of multiple sclerosis neuromyelitis optica spectrum disease or acute disseminated encephalomyelitis or viral myelitis cervical spine MRI negative and brain MRI with 10x6mm pineal cyst but no other changes lumbar spine MRI with minimal lumbar spo, patient has already been started on methylprednisolone sodium mg IV daily on today's visit she gives no history of nausea vomiting complains of mild headache but laying in bed comfortably. . She and her family had COVID in the 1st week of May to the symptomatology had fully resolved but she continued to test positive for COVID and is
[2023-06-18] VITALS (8 sets, daily range): BP systolic 98–114; BP diastolic 60–73; PULSE 70–84; RESP 16–19; TEMP 36.4–37.2; O2SAT 98–100
[2023-06-18] MEDS: HYDROcodone/acetaminophen (*CRX) 5-325 MG TABLET 1 TAB PO ×2 (00:24→22:06)
[2023-06-18 05:52] LABS: Basophils Percent Auto 0.2 % (0.2-1.2); Hematocrit 33.9 % (37.0-47.0); Hemoglobin 11.4 g/dL (12.0-15.0); Immature Granulocyte Absolute 0.07 K/mm3 (0.00-0.031); Immature Granulocyte Percent A 0.6 % (0-0.5); Lymphocytes Absolute Auto 1.13 K/mm3 (0.9-3.2); Lymphocytes Percent Auto 9.4 % (18.3-44.2); Mean Corpuscular HGB Conc 33.6 g/dl (32-36); Mean Corpuscular Hemoglobin 29.7 pg (26-34); Mean Corpuscular Volume 88.3 fl (80-100); Mean Platelet Volume 9.2 fl (7.4-10.4); Monocytes Absolute Auto 0.6 K/mm3 (0.1-0.6); Monocytes Percent Auto 5.3 % (2.6-8.5); Neutrophils Absolute Auto 10.1 K/mm3 (1.3-6.7); Neutrophils Percent Auto 84.5 % (45.5-73.1); Platelet Count Result 265 k/mm3 (150-375); Red Blood Count 3.84 M/mm3 (4.2-5.4); Red Cell Distribution Width 12.3 % (11.5-14.5)
[2023-06-18 06:16] LABS: Alanine Aminotransferase 19 U/L (6-35); Albumin Level 4.3 g/dL (3.5-5.1); Alkaline Phosphatase 39 U/L (38-126); Anion Gap 7 mmol/L (8-16); Aspartate Amino Transferase 16 U/L (14-36); Bilirubin,Total 0.4 mg/dL (0.2-1.3); Blood Urea Nitrogen 10 mg/dL (7-17); Calcium 9.2 mg/dL (8.4-10.2); Carbon Dioxide 26 mmol/L (22-30); Chloride 105 mmol/L (98-107); Estimated CRCL calculation 116 ml/min; Estimated Glomerular Filt Rate > 60; Glucose 127 mg/dL (65-110); Potassium 3.3 mmol/L (3.4-5.0); Sodium 138 mmol/L (137-145)
[2023-06-18] MEDS: ACETAMINOPHEN 325 MG TABLET 650 MG PO (07:55)
[2023-06-18] MEDS: methylPREDNISolone SOD SUCC 500 MG in DEXTROSE 5% 100 ML 200 MG IVPB ×2 (09:10→17:02)
[2023-06-18] MEDS: polyethylene glycoL 3350 17 GM POWD.PACK PO (09:10)
[2023-06-18] MEDS: ENOXAPARIN 40 MG/0.4 ML SYRINGE SUB-Q (09:10)
--- NOTE | 2023-06-18 09:57 | PM.IMPN ---
Progress Note: A&P Assessment and Plan (1) Spinal cord lesion: Code(s): G95.9 - Disease of spinal cord, unspecified Status: Acute Assessment and Plan: As evidenced by advanced imaging with MRI, there is a noted 9 mm enhancing lesion at T4. Neurology, Dr. Palmer has been consulted Continue with ordered IV Solumedrol 500 mg BID for 5 days. Continue to monitor Neuro assessments. LP with high Neutrophils in CSF. RPR non-reactive, Lyme tests pending, West Nile and HSV pending, HIV Negative, EBV pending, VZV pending 06/18/2023: Concerning etiology of MS versus transverse myelitis. Patient continuing to receive Solu-Medrol 500 mg twice daily by IV. Today is day 3 of therapy, with final does on the morning of June 21. Neurology to determine further treatment from that point. She has interval improvement in her sensation with now being able to feel her labia and perianal regions when wiping. Labs still pending include Lyme, West Nile, HSV, EBV and VZV. We did receive gram stain from CSF that demonstrated rare wbc's and no organisms. Final CSF culture without any growth. Patient is interval improvement is overall reassuring we will continue to monitor her. (2) Bilateral leg numbness: Code(s): R20.0 - Anesthesia of skin Status: Acute Assessment and Plan: Secondary to spinal lesion noted at T4. Unchanged paresthesias today with neither worse nor improved. Continue high dose steroid treatment and monitor. 06/18/2023: Interval improvement overnight as noted above. Continuing current medications including steroids. (3) Headache: Code(s): R51.9 - Headache, unspecified Status: Acute Assessment and Plan: Status post LP on , and has been present and persistent ever since. Unable to do blood patch on Monday, but this would help pt's headache. PRN meds ordered in the interim time for pain and for nausea. 06/18/2023: Patient remains with headache post LP. We have spoken with Radiology and they can place blood patch today. Patient will have blood patch placed and does continue to have p.r.n. medications as needed. No new neurological deficits. (4) Anxiety: Code(s): F41.9 - Anxiety disorder, unspecified Status: Chronic Assessment and Plan: Will order prn ativan for high anxiety use. (5) COVID: Code(s): U07.1 - COVID-19 Status: Acute Assessment and Plan: Recently was positive in May. No current symptoms and I suspect that this is not an acute infection. No isolation necessary. Plan I have discussed the plan of care with this patient, all questions were answered to patient's satisfaction and she is in agreement with the current plan of care. Time Spent With Patient Time with patient: 15 - 25 minutes Subjective Date/time seen: 06/18/23 0830 Interval history: This patient was examined at the bedside this morning. She reports some improvement in her overall headache, however we are hoping to have a blood patch placed today. Otherwise she states she is also having an improvement in the amount of sensation that she has. Patient reports when going to the bathroom she cannot feel her labia it is as well as when she wipes in the perianal region. She denies any new or worsening symptoms and appears very pleasant in good spirits at this time. Review of Systems Review of Systems: All systems reviewed & are unremarkable except as noted in HPI and below Exam Narrative: CONSTITUTIONAL: Pleasant, adult female patient sitting up in bed at this time knitting. She does not appear to be in any acute distress. HEENT: Head is atraumatic normocephalic. Moist mucous membranes present. Posterior oropharynx is patent. EYES: PERRLA, EOMs intact, anicteric sclera and conjunctiva without any injecture. NECK: Full range of motion in a simple manner in all directions, no JVD, no lymphadenopathy RESPIRATORY: Clear to auscultation bi
--- NOTE | 2023-06-18 10:47 | PC.NURSE ---
patient taken down to radiology for Blood Patch procedure
--- NOTE | 2023-06-18 11:21 | PC.NURSE ---
patient returned to room from radiology
[2023-06-19] VITALS (8 sets, daily range): BP systolic 94–128; BP diastolic 62–72; PULSE 55–72; RESP 16–18; TEMP 36.6–36.8; O2SAT 99–100
[2023-06-19 05:41] LABS: Basophils Percent Auto 0.1 % (0.2-1.2); Hematocrit 34.4 % (37.0-47.0); Hemoglobin 11.5 g/dL (12.0-15.0); Immature Granulocyte Absolute 0.11 K/mm3 (0.00-0.031); Lymphocytes Absolute Auto 1.16 K/mm3 (0.9-3.2); Lymphocytes Percent Auto 10.8 % (18.3-44.2); Mean Corpuscular HGB Conc 33.4 g/dl (32-36); Mean Corpuscular Hemoglobin 29.6 pg (26-34); Mean Corpuscular Volume 88.4 fl (80-100); Mean Platelet Volume 9.5 fl (7.4-10.4); Monocytes Absolute Auto 0.6 K/mm3 (0.1-0.6); Monocytes Percent Auto 5.3 % (2.6-8.5); Neutrophils Absolute Auto 8.9 K/mm3 (1.3-6.7); Neutrophils Percent Auto 82.8 % (45.5-73.1); Platelet Count Result 263 k/mm3 (150-375); Red Blood Count 3.89 M/mm3 (4.2-5.4); Red Cell Distribution Width 12.4 % (11.5-14.5); White Blood Count 10.8 K/mm3 (4.5-10.0)
[2023-06-19 05:53] LABS: Alanine Aminotransferase 20 U/L (6-35); Albumin Level 4.2 g/dL (3.5-5.1); Alkaline Phosphatase 29 U/L (38-126); Anion Gap 9 mmol/L (8-16); Aspartate Amino Transferase 24 U/L (14-36); Bilirubin,Total 0.5 mg/dL (0.2-1.3); Blood Urea Nitrogen 14 mg/dL (7-17); Calcium 8.9 mg/dL (8.4-10.2); Carbon Dioxide 24 mmol/L (22-30); Chloride 104 mmol/L (98-107); Estimated CRCL calculation 116 ml/min; Estimated Glomerular Filt Rate > 60; Glucose 111 mg/dL (65-110); Potassium 3.6 mmol/L (3.4-5.0); Sodium 137 mmol/L (137-145)
--- NOTE | 2023-06-19 07:25 | P.PNIM_ITS ---
Progress Note: A&P Assessment and Plan (1) Spinal cord lesion: Code(s): G95.9 - Disease of spinal cord, unspecified Status: Acute Assessment and Plan: 06/18/23: * As evidenced by advanced imaging with MRI, there is a noted 9 mm enhancing lesion at T4. * Neurology, Dr. Palmer has been consulted * Continue with ordered IV Solumedrol 500 mg BID for 5 days. * Continue to monitor Neuro assessments. * LP with high Neutrophils in CSF. * RPR non-reactive, Lyme tests pending, West Nile and HSV pending, HIV Negative, EBV pending, VZV pending * 06/18/2023: Concerning etiology of MS versus transverse myelitis. Patient continuing to receive Solu-Medrol 500 mg twice daily by IV. Today is day 3 of therapy, with final does on the morning of June 21. Neurology to determine further treatment from that point. She has interval improvement in her sensation with now being able to feel her labia and perianal regions when wiping. Labs still pending include Lyme, West Nile, HSV, EBV and VZV. We did receive gram stain from CSF that demonstrated rare wbc's and no organisms. Final CSF culture without any growth. Patient is interval improvement is overall reassuring we will continue to monitor her. 06/19/23: * EBV, herpes 1, herpes 2, West Nile not detected * Other labs and cultures are still pending at this time * Continue with Solu-Medrol * Neurology following * Continue to monitor neuro assessment (2) Bilateral leg numbness: Code(s): R20.0 - Anesthesia of skin Status: Acute Assessment and Plan: 06/18/23: * Secondary to spinal lesion noted at T4. * Unchanged paresthesias today with neither worse nor improved. * Continue high dose steroid treatment and monitor. 06/18/2023: * Interval improvement overnight as noted above. Continuing current medications including steroids. 06/19/23: * Patient denies any numbness or tingling today, she is stating it is much improved * Continue with IV steroids * Neurology following (3) Headache: Code(s): R51.9 - Headache, unspecified Status: Acute Assessment and Plan: 06/18/23: * Status post LP on , and has been present and persistent ever since. * Unable to do blood patch on Monday, but this would help pt's headache. * PRN meds ordered in the interim time for pain and for nausea. 06/18/2023: * Patient remains with headache post LP. We have spoken with Radiology and they can place blood patch today. Patient will have blood patch placed and does continue to have p.r.n. medications as needed. No new neurological deficits. 06/19/23: * Still reporting a slight headache today. * P.r.n. pain medication in place (4) Anxiety: Code(s): F41.9 - Anxiety disorder, unspecified Status: Chronic Assessment and Plan: 06/18/23: * Will order prn ativan for high anxiety use. 06/19/23: * No change to current treatment plan (5) COVID: Code(s): U07.1 - COVID-19 Status: Acute Assessment and Plan: 06/18/23: * Recently was positive in May. No current symptoms and I suspect that this is not an acute infection. * No isolation necessary. 06/19/23: * No change to current treatment plan Time Spent With Patient Time with patient: 25 - 35 minutes Subjective Date/time seen: 06/19/23 07:25 Interval history: This is a 42 year old female who presented to the hospital with on 06/16/23 with weakness and numbness. she had a Thoracic Spine MRI which shown a 9mm enhancing lesion in the spinal cord at T4. Lumbar spine MRI w
--- NOTE | 2023-06-19 07:25 | PM.IMPN ---
Progress Note: A&P Assessment and Plan (1) Spinal cord lesion: Code(s): G95.9 - Disease of spinal cord, unspecified Status: Acute Assessment and Plan: 06/18/23: As evidenced by advanced imaging with MRI, there is a noted 9 mm enhancing lesion at T4. Neurology, Dr. Palmer has been consulted Continue with ordered IV Solumedrol 500 mg BID for 5 days. Continue to monitor Neuro assessments. LP with high Neutrophils in CSF. RPR non-reactive, Lyme tests pending, West Nile and HSV pending, HIV Negative, EBV pending, VZV pending 06/18/2023: Concerning etiology of MS versus transverse myelitis. Patient continuing to receive Solu-Medrol 500 mg twice daily by IV. Today is day 3 of therapy, with final does on the morning of June 21. Neurology to determine further treatment from that point. She has interval improvement in her sensation with now being able to feel her labia and perianal regions when wiping. Labs still pending include Lyme, West Nile, HSV, EBV and VZV. We did receive gram stain from CSF that demonstrated rare wbc's and no organisms. Final CSF culture without any growth. Patient is interval improvement is overall reassuring we will continue to monitor her. 06/19/23: EBV, herpes 1, herpes 2, West Nile not detected Other labs and cultures are still pending at this time Continue with Solu-Medrol Neurology following Continue to monitor neuro assessment (2) Bilateral leg numbness: Code(s): R20.0 - Anesthesia of skin Status: Acute Assessment and Plan: 06/18/23: Secondary to spinal lesion noted at T4. Unchanged paresthesias today with neither worse nor improved. Continue high dose steroid treatment and monitor. 06/18/2023: Interval improvement overnight as noted above. Continuing current medications including steroids. 06/19/23: Patient denies any numbness or tingling today, she is stating it is much improved Continue with IV steroids Neurology following (3) Headache: Code(s): R51.9 - Headache, unspecified Status: Acute Assessment and Plan: 06/18/23: Status post LP on , and has been present and persistent ever since. Unable to do blood patch on Monday, but this would help pt's headache. PRN meds ordered in the interim time for pain and for nausea. 06/18/2023: Patient remains with headache post LP. We have spoken with Radiology and they can place blood patch today. Patient will have blood patch placed and does continue to have p.r.n. medications as needed. No new neurological deficits. 06/19/23: Still reporting a slight headache today. P.r.n. pain medication in place (4) Anxiety: Code(s): F41.9 - Anxiety disorder, unspecified Status: Chronic Assessment and Plan: 06/18/23: Will order prn ativan for high anxiety use. 06/19/23: No change to current treatment plan (5) COVID: Code(s): U07.1 - COVID-19 Status: Acute Assessment and Plan: 06/18/23: Recently was positive in May. No current symptoms and I suspect that this is not an acute infection. No isolation necessary. 06/19/23: No change to current treatment plan Time Spent With Patient Time with patient: 25 - 35 minutes Subjective Date/time seen: 06/19/23 07:25 Interval history: This is a 42 year old female who presented to the hospital with on 06/16/23 with weakness and numbness. she had a Thoracic Spine MRI which shown a 9mm enhancing lesion in the spinal cord at T4. Lumbar spine MRI was essentially negative. 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 Cervical Spine MRI was essentially normal. She had a lumbar puncture at the L3-L4 level on 06/16/23. Patient underwent Fluoro-guided lumbar blood patch on 06/18/23. UA shown ketones, otherwise negative. Respiratory panel positive for covid. She remains on IV steroids. Neurology following. On examination today patient is alert x3, lying in the bed. VSS, she is afebrile currently o
[2023-06-19] MEDS: ACETAMINOPHEN 325 MG TABLET 650 MG PO (08:14)
[2023-06-19] MEDS: methylPREDNISolone SOD SUCC 500 MG in DEXTROSE 5% 100 ML 200 MG IVPB ×2 (08:14→16:42)
[2023-06-19] MEDS: ENOXAPARIN 40 MG/0.4 ML SYRINGE SUB-Q (08:14)
[2023-06-19] MEDS: MELATONIN 5 MG TABLET PO (20:59)
[2023-06-20] VITALS (7 sets, daily range): BP systolic 100–112; BP diastolic 58–77; PULSE 65–73; RESP 16–18; TEMP 36.2–36.7; O2SAT 98–100
[2023-06-20 06:21] LABS: Hemoglobin 11.3 g/dL (12.0-15.0); Mean Corpuscular HGB Conc 33.2 g/dl (32-36); Mean Corpuscular Hemoglobin 29.5 pg (26-34); Mean Corpuscular Volume 88.8 fl (80-100); Mean Platelet Volume 9.5 fl (7.4-10.4); Platelet Count Result 234 k/mm3 (150-375); Red Blood Count 3.83 M/mm3 (4.2-5.4); Red Cell Distribution Width 12.2 % (11.5-14.5)
[2023-06-20 06:41] LABS: Alanine Aminotransferase 17 U/L (6-35); Albumin Level 4.1 g/dL (3.5-5.1); Alkaline Phosphatase 37 U/L (38-126); Anion Gap 5 mmol/L (8-16); Aspartate Amino Transferase 20 U/L (14-36); Bilirubin,Total 0.4 mg/dL (0.2-1.3); Blood Urea Nitrogen 14 mg/dL (7-17); Calcium 9.3 mg/dL (8.4-10.2); Carbon Dioxide 26 mmol/L (22-30); Chloride 107 mmol/L (98-107); Estimated CRCL calculation 116 ml/min; Estimated Glomerular Filt Rate > 60; Glucose 98 mg/dL (65-110); Potassium 3.6 mmol/L (3.4-5.0); Sodium 138 mmol/L (137-145)
--- NOTE | 2023-06-20 08:19 | P.PNIM_ITS ---
Progress Note: A&P Assessment and Plan (1) Spinal cord lesion: Code(s): G95.9 - Disease of spinal cord, unspecified Status: Acute Assessment and Plan: 06/18/23: * As evidenced by advanced imaging with MRI, there is a noted 9 mm enhancing lesion at T4. * Neurology, Dr. Palmer has been consulted * Continue with ordered IV Solumedrol 500 mg BID for 5 days. * Continue to monitor Neuro assessments. * LP with high Neutrophils in CSF. * RPR non-reactive, Lyme tests pending, West Nile and HSV pending, HIV Negative, EBV pending, VZV pending * 06/18/2023: Concerning etiology of MS versus transverse myelitis. Patient continuing to receive Solu-Medrol 500 mg twice daily by IV. Today is day 3 of therapy, with final does on the morning of June 21. Neurology to determine further treatment from that point. She has interval improvement in her sensation with now being able to feel her labia and perianal regions when wiping. Labs still pending include Lyme, West Nile, HSV, EBV and VZV. We did receive gram stain from CSF that demonstrated rare wbc's and no organisms. Final CSF culture without any growth. Patient is interval improvement is overall reassuring we will continue to monitor her. 06/19/23: * EBV, herpes 1, herpes 2, West Nile not detected * Other labs and cultures are still pending at this time * Continue with Solu-Medrol * Neurology following * Continue to monitor neuro assessment 06/20/23: * CSF labs still pending. * Continue with Solu-medrol dosing * Neurology following * Continue to monitor neuro status (2) Bilateral leg numbness: Code(s): R20.0 - Anesthesia of skin Status: Acute Assessment and Plan: 06/18/23: * Secondary to spinal lesion noted at T4. * Unchanged paresthesias today with neither worse nor improved. * Continue high dose steroid treatment and monitor. 06/18/2023: * Interval improvement overnight as noted above. Continuing current medications including steroids. 06/19/23: * Patient denies any numbness or tingling today, she is stating it is much improved * Continue with IV steroids * Neurology following 06/20/23: * No change to current treatment plan. (3) Headache: Code(s): R51.9 - Headache, unspecified Status: Acute Assessment and Plan: 06/18/23: * Status post LP on , and has been present and persistent ever since. * Unable to do blood patch on Monday, but this would help pt's headache. * PRN meds ordered in the interim time for pain and for nausea. 06/18/2023: * Patient remains with headache post LP. We have spoken with Radiology and they can place blood patch today. Patient will have blood patch placed and does continue to have p.r.n. medications as needed. No new neurological deficits. 06/19/23: * Still reporting a slight headache today. * P.r.n. pain medication in place 06/20/23: * No change to current treatment plan (4) Anxiety: Code(s): F41.9 - Anxiety disorder, unspecified Status: Chronic Assessment and Plan: 06/18/23: * Will order prn ativan for high anxiety use. 06/19/23: * No change to current treatment plan (5) COVID: Code(s): U07.1 - COVID-19 Status: Acute Assessment and Plan: 06/18/23: * Recently was positive in May. No current symptoms and I suspect that this is not an acute infection. * No isolation necessary. 06/19/23: * No change to current treatment plan Time Spent With Patient Time with patient: 25 - 35 minutes Subjective Akhil
--- NOTE | 2023-06-20 08:19 | PM.IMPN ---
Progress Note: A&P Assessment and Plan (1) Spinal cord lesion: Code(s): G95.9 - Disease of spinal cord, unspecified Status: Acute Assessment and Plan: 06/18/23: As evidenced by advanced imaging with MRI, there is a noted 9 mm enhancing lesion at T4. Neurology, Dr. Palmer has been consulted Continue with ordered IV Solumedrol 500 mg BID for 5 days. Continue to monitor Neuro assessments. LP with high Neutrophils in CSF. RPR non-reactive, Lyme tests pending, West Nile and HSV pending, HIV Negative, EBV pending, VZV pending 06/18/2023: Concerning etiology of MS versus transverse myelitis. Patient continuing to receive Solu-Medrol 500 mg twice daily by IV. Today is day 3 of therapy, with final does on the morning of June 21. Neurology to determine further treatment from that point. She has interval improvement in her sensation with now being able to feel her labia and perianal regions when wiping. Labs still pending include Lyme, West Nile, HSV, EBV and VZV. We did receive gram stain from CSF that demonstrated rare wbc's and no organisms. Final CSF culture without any growth. Patient is interval improvement is overall reassuring we will continue to monitor her. 06/19/23: EBV, herpes 1, herpes 2, West Nile not detected Other labs and cultures are still pending at this time Continue with Solu-Medrol Neurology following Continue to monitor neuro assessment 06/20/23: CSF labs still pending. Continue with Solu-medrol dosing Neurology following Continue to monitor neuro status (2) Bilateral leg numbness: Code(s): R20.0 - Anesthesia of skin Status: Acute Assessment and Plan: 06/18/23: Secondary to spinal lesion noted at T4. Unchanged paresthesias today with neither worse nor improved. Continue high dose steroid treatment and monitor. 06/18/2023: Interval improvement overnight as noted above. Continuing current medications including steroids. 06/19/23: Patient denies any numbness or tingling today, she is stating it is much improved Continue with IV steroids Neurology following 06/20/23: No change to current treatment plan. (3) Headache: Code(s): R51.9 - Headache, unspecified Status: Acute Assessment and Plan: 06/18/23: Status post LP on , and has been present and persistent ever since. Unable to do blood patch on Monday, but this would help pt's headache. PRN meds ordered in the interim time for pain and for nausea. 06/18/2023: Patient remains with headache post LP. We have spoken with Radiology and they can place blood patch today. Patient will have blood patch placed and does continue to have p.r.n. medications as needed. No new neurological deficits. 06/19/23: Still reporting a slight headache today. P.r.n. pain medication in place 06/20/23: No change to current treatment plan (4) Anxiety: Code(s): F41.9 - Anxiety disorder, unspecified Status: Chronic Assessment and Plan: 06/18/23: Will order prn ativan for high anxiety use. 06/19/23: No change to current treatment plan (5) COVID: Code(s): U07.1 - COVID-19 Status: Acute Assessment and Plan: 06/18/23: Recently was positive in May. No current symptoms and I suspect that this is not an acute infection. No isolation necessary. 06/19/23: No change to current treatment plan Time Spent With Patient Time with patient: 25 - 35 minutes Subjective Date/time seen: 06/20/23 08:19 Interval history: 06/19/23: This is a 42 year old female who presented to the hospital with on 06/16/23 with weakness and numbness. she had a Thoracic Spine MRI which shown a 9mm enhancing lesion in the spinal cord at T4. Lumbar spine MRI was essentially negative. 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 Cervical Spine MRI was essentially normal. She had a lumbar puncture at the L3-L4 level on 06/16/23. Patient underwent Fluoro-guided lumbar bloo
[2023-06-20] MEDS: methylPREDNISolone SOD SUCC 500 MG in DEXTROSE 5% 100 ML 200 MG IVPB ×2 (08:49→17:07)
[2023-06-20] MEDS: ENOXAPARIN 40 MG/0.4 ML SYRINGE SUB-Q (08:50)
--- NOTE | 2023-06-20 11:45 | WPDNEUROPN ---
Subjective Date/time seen: 06/20/23 11:45 Interval history: 42 years old lady with spinal cord lesion described on MRI 1.9mm enhancing lesion in the spinal cord at T4 differential of multiple sclerosis neuromyelitis optica spectrum disease or acute disseminated encephalomyelitis or transfers myelitis or viral myelitis, his studies up until now include CBC with no leukocytosis INR of 1.0, normal electrolyte and all other MRIs were negative she has 1 more day left in the course of 5 days treatment she is feeling better though still she has numbness in the same distribution but definitely she has not seen any worsening of the symptoms treatment will be continued up until tomorrow and after the discharge she will follow-up with Dr. Palmer. Objective Data Vital Signs Vital Signs: Vital Signs - 24 hr 06/19/23 14:41 06/19/23 14:41 06/19/23 14:43 Temperature 36.8 C 36.8 C Pulse Rate 60 60 65 Respiratory Rate 18 18 Blood Pressure 106/64 106/64 104/69 Pulse Oximetry 99 99 99 Oxygen Delivery 06/19/23 14:45 06/19/23 21:10 06/19/23 20:00 Temperature 36.6 C Pulse Rate 72 67 61 Respiratory Rate 16 Blood Pressure 104/72 112/67 112/67 Pulse Oximetry 99 100 Oxygen Delivery 06/19/23 20:05 06/19/23 20:10 06/19/23 20:54 Temperature Pulse Rate 60 71 Respiratory Rate Blood Pressure 128/69 114/69 Pulse Oximetry Oxygen Delivery Room Air 06/20/23 05:50 06/20/23 08:00 Temperature 36.6 C Pulse Rate 66 Respiratory Rate 16 Blood Pressure 100/68 Pulse Oximetry 100 Oxygen Delivery Room Air Intake/Output Intake/Output: Intake & Output 06/17/23 06/18/23 06/19/23 06/20/23 23:59 23:59 23:59 23:59 Intake Total 1683 761 9777 560 Balance 3758 572 5247 560 Meds/Results Medications: Active Medications Generic Name Dose Route Start Last Admin Trade Name Freq PRN Reason Stop Dose Admin Acetaminophen 650 mg 06/16/23 16:11 06/19/23 08:14 Acetaminophen 325 Mg Tablet PO 650 mg Q6H PRN Administration Mild Pain (1-3) or Fever Hydrocodone Bitart/Acetaminophen 1 tab 06/17/23 09:23 02/11/24 22:06 Hydrocodone/Acetaminophen (*Crx) 5-325 Mg Tablet PO 1 tab Q4H PRN Administration Pain Rated 4-6 Enoxaparin Sodium 40 mg 06/17/23 09:00 06/20/23 08:50 Enoxaparin 40 Mg/0.4 Ml Syringe SUB-Q 40 mg DAILY ESTRELLA Administration Methylprednisolone Sodium 100 mls @ 200 mls/hr 06/16/23 17:00 06/20/23 08:49 Succinate 500 mg/ Dextrose IVPB 06/21/23 09:29 200 mls/hr BID ESTRELLA Administration Lorazepam 0.5 mg 06/17/23 11:25 Lorazepam (*Crx) 0.5 Mg Tablet PO Q6H PRN Anxiety Melatonin 5 mg 06/19/23 21:00 06/19/23 20:59 Melatonin 5 Mg Tablet PO 5 mg HS ESTRELLA Administration Ondansetron HCl 4 mg 06/17/23 09:13 06/17/23 09:36 Ondansetron Inj 4 Mg/2 Ml Vial IV PUSH 4 mg Q6H PRN Administration Nausea And Vomiting Polyethylene Glycol 17 gm 06/17/23 22:50 06/18/23 09:10 Polyethylene Glycol 3350 17 Gm Powd.Pack PO 17 gm QAM PRN Administration Constipation Radiology Results: ITS Impressions Blood Patch 06/18/23 11:18 IMPRESSION: 1. Successful fluoro-guided lumbar blood patch. Labs Labs: Laboratory Results - last 24 hr 06/20/23 06:03 WBC 10.0 RBC 3.83 L Hgb 11.3 L Hct 34.0 L MCV 88.8 MCH 29.5 MCHC 33.2 RDW 12.2 Plt Count 234 MPV 9.5 Sodium 138 Potassium 3.6 Chloride 107 Carbon Dioxide 26 Anion Gap 5 L BUN 14 Creatinine 0.50 L Estim Creat Clear Calc 116 Estimated GFR > 60 Glucose 98 Calcium 9.3 Total Bilirubin 0.4 AST 20 ALT 17 Alkaline Phosphatase 37 L Total Protein 7.0 Albumin 4.1 Amg Follow-up Billing Hospital Follow-up Hospital Follow-up: [id number] [facility]
[2023-06-20] MEDS: polyethylene glycoL 3350 17 GM POWD.PACK PO (12:55)
[2023-06-20] MEDS: ACETAMINOPHEN 325 MG TABLET 650 MG PO ×2 (12:55→20:07)
[2023-06-20] MEDS: MELATONIN 5 MG TABLET PO (20:07)
[2023-06-21 03:08] VITALS: BP 106/68; PULSE 75; RESP 18; TEMP 36.2; O2SAT 100
[2023-06-21 05:31] LABS: Hemoglobin 10.9 g/dL (12.0-15.0); Mean Corpuscular HGB Conc 34.1 g/dl (32-36); Mean Corpuscular Hemoglobin 29.9 pg (26-34); Mean Corpuscular Volume 87.9 fl (80-100); Mean Platelet Volume 9.7 fl (7.4-10.4); Platelet Count Result 214 k/mm3 (150-375); Red Blood Count 3.64 M/mm3 (4.2-5.4); Red Cell Distribution Width 12.1 % (11.5-14.5); White Blood Count 8.5 K/mm3 (4.5-10.0)
[2023-06-21 05:54] LABS: Alanine Aminotransferase 15 U/L (6-35); Albumin Level 3.6 g/dL (3.5-5.1); Alkaline Phosphatase 34 U/L (38-126); Aspartate Amino Transferase 15 U/L (14-36); Bilirubin,Total 0.4 mg/dL (0.2-1.3); Blood Urea Nitrogen 12 mg/dL (7-17); Calcium 8.9 mg/dL (8.4-10.2); Carbon Dioxide 25 mmol/L (22-30); Estimated CRCL calculation 116 ml/min; Estimated Glomerular Filt Rate > 60; Glucose 119 mg/dL (65-110)
[2023-06-21 06:14] LABS: Anion Gap 4 mmol/L (8-16); Chloride 107 mmol/L (98-107); Potassium 3.5 mmol/L (3.4-5.0); Sodium 136 mmol/L (137-145)
[2023-06-21] MEDS: methylPREDNISolone SOD SUCC 500 MG in DEXTROSE 5% 100 ML 200 MG IVPB (08:08)
[2023-06-21] MEDS: ENOXAPARIN 40 MG/0.4 ML SYRINGE SUB-Q (08:08)
[2023-06-21] MEDS: ACETAMINOPHEN 325 MG TABLET 650 MG PO (08:46)
--- NOTE | 2023-06-21 09:29 | PM.DS ---
DS: Admitting Diagnosis Discharge Date 06/21/23 Admitting Diagnosis Spinal cord lesion Bilateral leg numbness Anxiety COVID DS: Discharge Diagnosis Discharge Diagnosis (1) Spinal cord lesion: Code(s): G95.9 - Disease of spinal cord, unspecified Status: Acute (2) Bilateral leg numbness: Code(s): R20.0 - Anesthesia of skin Status: Acute (3) Headache: Code(s): R51.9 - Headache, unspecified Status: Acute (4) Anxiety: Code(s): F41.9 - Anxiety disorder, unspecified Status: Chronic (5) COVID: Code(s): U07.1 - COVID-19 Status: Acute DS: Summary Hospital Course Reason for hospitalization: Spinal cord lesion Bilateral leg numbness Anxiety COVID Hospital Course: This is a 42 year old female who presented to the hospital with on 06/16/23 with weakness and numbness. she had a Thoracic Spine MRI which shown a 9mm enhancing lesion in the spinal cord at T4. Lumbar spine MRI was essentially negative. 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 Cervical Spine MRI was essentially normal. She had a lumbar puncture at the L3-L4 level on 06/16/23. Patient underwent Fluoro-guided lumbar blood patch on 06/18/23. UA shown ketones, otherwise negative. Respiratory panel positive for covid.? She remains on IV steroids. Neurology following. On examination today patient is alert x3, lying in the bed.? VSS, she is afebrile currently on room air.? She denies any fever, chills, nausea, vomiting, diarrhea, abdominal pain, chest pain, shortness a breath, numbness, tingling.? She states that her symptoms are much improved ever since starting Solu-Medrol.? Labs today reveal WBC 10.8, Hgb 11.5, Hct 34.4.? EBV, herpes 1, her base 2, West Nile are showing no detection, other serology labs, and cultures pending. 06/20/23: Labs essentially unremarkable. Patient awaiting Neurology to come by as she has multiple questions for them. CSF labs and cultures are still pending. Patient will continue on Solumedrol until tomorrow. Likely will discharge tomorrow. She is still reporting numbness but it is much improved. She will likely discharge tomorrow on solu-medrol dose pack.? 06/21/2023: Labs essentially unremarkable. Patient denies any new complaints today. She is finished with her IV Solu-Medrol dosing. She is stable for discharge at this time. She will need to follow up with Neurology in the next 2 weeks. She will be sent home on a Solu-Medrol Dosepak for taper Final diagnosis: Spinal cord lesion, paresthesia Status at Discharge Cognitive/behavioral status at discharge: Alert diet x4 Functional status at discharge: independent ambulation Overall status at discharge: patient is progressing back to baseline Time Spent with Patient Time attestation: Total time spent providing and/or coordinating discharge services: Exam Narrative: General: In no acute distress, well nourished Head: atraumatic, no encephalopathy Eyes: EOMI, PERRLA, sclera clear ENT: moist mucous membranes, nasal passages clear Neck: supple, no JVD, no adenopathy, trachea midline Cardiac: Normal S1 and S2. RRR. No murmur, gallops or friction rubs, peripheral pulses intact. Respiratory: Lungs clear to auscultation, no adventitious lung sounds Gastrointestinal: soft, non-distended, non-tender, normoactive bowel sounds. : voiding without difficulty. Extremities: moves all extremities well, no edema, good ROM, strength 5/5 Skin: clean, dry, intact. No wounds or lesions. Neuro: Alert and oriented x4, cranial nerves intact, no neuro deficits. Numbness improved Psych: normal mood, normal affect, interactive DS: Data Data Completed and Pending Completed studies during hospitalization: Head and neck CTA Lumbar spine CT Chest x-ray Thoracic spine CT Lumbar spine MRI Brain MRI Cervical spine MRI Thoracic spine MRI Lumbar puncture fluoroscopy Pending studies at discharge: CSF the labs are still pending, neurology is following Labs on day of
--- NOTE | 2023-06-21 11:24 | WPDNEUROPN ---
Subjective Date/time seen: 06/21/23 11:24 Interval history: Is status post documented 1.9mm enhancing lesion in the spinal cord at the level of T4 with multiple differential diagnosis that is multiple sclerosis possibility of neuromyelitis optica spectrum disease, acute disseminated encephalomyelitis and transfers myelitis and viral myelitis, serology at this particular time is pending though the only thing positive at the time of admission was SARs COVID, received the IV Solu-Medrol g per 24hours for the last 5 days at present she is definitely feeling better with decreased numbness around the thigh on the left side as well as decrease numbness on the ankle on the right side she gives no history of any increasing symptomatology she is being discharged this morning with instruction to continue Medrol Dosepak for the next 5 days to slowly taper the steroids and also return to Dr. Palmer was office for the follow-up of the further recommendations. Objective Data Vital Signs Vital Signs: Vital Signs - 24 hr 06/20/23 14:00 06/20/23 14:17 06/20/23 14:17 Temperature 36.7 C Pulse Rate 73 Respiratory Rate 16 Blood Pressure 102/58 L 112/75 102/58 L Pulse Oximetry 98 Oxygen Delivery 06/20/23 19:56 06/20/23 19:58 06/20/23 19:56 Temperature 36.2 C L 36.2 C L 36.2 C L Pulse Rate 68 68 65 Respiratory Rate 18 18 18 Blood Pressure 110/69 110/69 110/66 Pulse Oximetry 99 99 100 Oxygen Delivery 06/20/23 19:57 06/20/23 20:02 06/21/23 03:08 Temperature 36.2 C L 36.2 C L Pulse Rate 73 75 Respiratory Rate 18 18 Blood Pressure 103/68 106/68 Pulse Oximetry 100 100 Oxygen Delivery Room Air 06/21/23 08:00 Temperature Pulse Rate Respiratory Rate Blood Pressure Pulse Oximetry Oxygen Delivery Room Air Intake/Output Intake/Output: Intake & Output 06/18/23 06/19/23 06/20/23 06/21/23 23:59 23:59 23:59 23:59 Intake Total 820 1250 1340 730 Output Total 2 Balance 820 1250 1340 728 Meds/Results Medications: Active Medications Generic Name Dose Route Start Last Admin Trade Name Freq PRN Reason Stop Dose Admin Acetaminophen 650 mg 06/16/23 16:11 06/21/23 08:46 Acetaminophen 325 Mg Tablet PO 650 mg Q6H PRN Administration Mild Pain (1-3) or Fever Hydrocodone Bitart/Acetaminophen 1 tab 06/17/23 09:23 06/18/23 22:06 Hydrocodone/Acetaminophen (*Crx) 5-325 Mg Tablet PO 1 tab Q4H PRN Administration Pain Rated 4-6 Enoxaparin Sodium 40 mg 06/17/23 09:00 06/21/23 08:08 Enoxaparin 40 Mg/0.4 Ml Syringe SUB-Q 40 mg DAILY ESTRELLA Administration Lorazepam 0.5 mg 06/17/23 11:25 Lorazepam (*Crx) 0.5 Mg Tablet PO Q6H PRN Anxiety Melatonin 5 mg 06/19/23 21:00 06/20/23 20:07 Melatonin 5 Mg Tablet PO 5 mg HS ESTRELLA Administration Ondansetron HCl 4 mg 06/17/23 09:13 06/17/23 09:36 Ondansetron Inj 4 Mg/2 Ml Vial IV PUSH 4 mg Q6H PRN Administration Nausea And Vomiting Polyethylene Glycol 17 gm 06/17/23 22:50 06/20/23 12:55 Polyethylene Glycol 3350 17 Gm Powd.Pack PO 17 gm QAM PRN Administration Constipation Radiology Results: ITS Impressions Blood Patch 06/18/23 11:18 IMPRESSION: 1. Successful fluoro-guided lumbar blood patch. Labs Labs: Laboratory Results - last 24 hr 06/21/23 05:06 WBC 8.5 RBC 3.64 L Hgb 10.9 L Hct 32.0 L MCV 87.9 MCH 29.9 MCHC 34.1 RDW 12.1 Plt Count 214 MPV 9.7 Sodium 136 L Potassium 3.5 Chloride 107 Carbon Dioxide 25 Anion Gap 4 L BUN 12 Creatinine 0.50 L Estim Creat Clear Calc 116 Estimated GFR > 60 Glucose 119 H Calcium 8.9 Total Bilirubin 0.4 AST 15 ALT 15 Alkaline Phosphatase 34 L Total Protein 7.0 Albumin 3.6 Amg Follow-up Billing Hospital Follow-up Hospital Follow-up: [id number] [facility]
== END 2023-06-21 14:10 | disposition home or self-care (01) | DRG 40 ==
LOC: ANHED 12:07 → ANH2MED 14:31
PROVIDERS: Nurse Practitioner Adult Health; Physician Assistant; Admitting Provider Internal Medicine; Emergency Provider Emergency Medicine; Visit Provider Nurse Practitioner Acute Care
DX: G95.9 Disease of spinal cord, unspecified (principal); U07.1 COVID-19; G97.1 Other reaction to spinal and lumbar puncture; F41.9 Anxiety disorder, unspecified; R20.0 Anesthesia of skin; Z87.891 Personal history of nicotine dependence
CPT/HCPCS: 36415; 62273; 77003; 80048; 80053; 81003; 81025; 83690; 83735; 85025; 85027; 85610; 85652; 86140; 87636; 96361; 96374; 99285; A9270; C9113; J1650; J2405; J2930; J7030

== ENCOUNTER 2024-02-08 22:57 | Emergency (ER) | payer OTHER, SELFPAY ==
[2024-02-08 23:03] VITALS: BP 101/63; PULSE 81; RESP 16; TEMP 36.3; O2SAT 100
--- NOTE | 2024-02-09 01:43 | ED.ANIMALBIT ---
HPI - Animal Bite General Chief Complaint: Animal Bite Stated Complaint: dog bite Time Seen by Provider: 02/09/24 01:42 Source: patient Mode of arrival: ambulatory Limitations: no limitations History of Present Illness HPI narrative: This is a 43-year-old female who presents to the ED for chief complaint of dog bite to the right upper arm that occurred this evening. Patient reports that her dogs ran a fight when she tried to break the heart. States that she suffered several puncture wounds to the right upper arm but no further sites of pain or injury. Reports she is likely not up-to-date on tetanus shots. Related Data Home Medications Medication Instructions Recorded Confirmed cyanocobalamin (vitamin B-12) 250 250 mcg PO DAILY 06/14/23 06/16/23 mcg tablet multivitamin-ferrous 1 tablet PO DAILY 06/14/23 06/16/23 fumarate-folic acid 18 mg-400 mcg tablet Allergies Allergy/AdvReac Type Severity Reaction Status Date / Time nitrofurantoin Allergy Intermediate Itching Verified 06/14/23 18:29 [From Macrobid] Sulfa (Sulfonamide Allergy Unknown Itching Verified 06/14/23 18:29 Antibiotics) SHELL FISH Allergy Intermediate FACE SWELLS Uncoded 06/14/23 14:26 Review of Systems Review of Systems: All systems as dictated in HPI [facility] Past Medical History Medical History (Updated 02/09/24 @ 02:36 by Everette Abdullahi PA-C) Anxiety Headache Surgical History Surgical History History of section Family History Family History Sibling Diabetes mellitus Social History Social History Social History: Surrogate medical decision maker: Zack Herr, spouse. Code status: Full code. Smoking packs per day: 1 Smoking cigarettes per day: 20.0 Years smoked: 15 Smoking pack-years: 15.00 Smoking status: Former smoker Tobacco type: cigarettes Second hand tobacco smoke exposure: No Additional smoking assessment comments: quit 10 years ago Alcohol intake: current Drinks per week: 4 Substance use: never Substance use type: does not use Do You Feel Safe in your Home?: Yes Lack of Transportation: No Lack of Food: Never True Current Housing: I Have Housing Concerned About Future Housing: No Difficulty Paying Gas/Electric Bills: No Difficulty Paying for Meds: No Currently Unemployed: No Education: Bachelor's Degree Difficulty w/ Childcare or Family Care: No Living arrangements: with family Spiritual care concerns: No Exam Narrative: GENERAL: Well-appearing, well-nourished, and in no acute distress. HEAD: Normocephalic, atraumatic. EYES: PERRLA and EOMI. ENT: Nares clear, no rhinorrhea or epistaxis. Mucous membranes moist. Oropharynx without tonsillar hypertrophy exudate or other lesions. NECK: Supple. No adenopathy or masses. CHEST: No respiratory distress. Clear to auscultation. No wheezes rales or rhonchi HEART: Regular rate and rhythm. No murmur heard. Normal peripheral pulses. ABDOMEN: Soft, nontender, nondistended, normal active bowel sounds. MSK: Normal range of motion. No edema. SKIN: 4 distinct puncture/bite monae lesions to the right upper arm. No active bleeding. Minimal tenderness. No bruising or crepitus. NEURO: Alert and oriented x4. No focal deficits. PSYCH: Normal mood and affect. Course Vital Signs Vital signs: Vital Signs Temperature 97.4 F L 02/08/24 23:03 Pulse Rate 81 02/08/24 23:03 Respiratory Rate 16 02/08/24 23:03 Blood Pressure 101/63 02/08/24 23:03 Pulse Oximetry 100 02/08/24 23:03 Temperature 97.4 F L 02/08/24 23:03 Pulse Rate 61 02/09/24 02:47 Respiratory Rate 18 02/09/24 02:47 Blood Pressure 112/80 02/09/24 02:47 Pulse Oximetry 98 02/09/24 02:47 MDM - Animal Bite MDM Narrative Medical dec
[2024-02-09] MEDS: TETANUS,DIPHTHERIA,AC PERTUSSIS ADULT (0.5 ML) BOOSTRIX IM (02:20)
[2024-02-09] MEDS: AMOXICILLIN/CLAVULANATE K 875-125 MG TAB 1 TABLET PO (02:21)
[2024-02-09 02:47] VITALS: BP 112/80; PULSE 61; RESP 18; O2SAT 98
== END 2024-02-09 03:00 | disposition home or self-care (01) ==
LOC: ANHED 02-09 02:53
PROVIDERS: Emergency Provider Physician Assistant
DX: S41.151A Open bite of right upper arm, initial encounter (principal); Z23 Encounter for immunization; Z87.891 Personal history of nicotine dependence; W54.0XXA Bitten by dog, initial encounter
CPT/HCPCS: 90471; 90715; 99283; A9270